=== PATIENT | male | born 1955 | race Caucasian/White ===

== ENCOUNTER 2017-07-21 08:00 | Outpatient (RCR) | payer OTHER ==
[2017-05-19 08:10] VITALS: BP 120/75
[2017-05-19 08:37] LABS: PLATELET COUNT, AUTOMATED 163 K/uL (150-450)
[2017-05-26 08:11] VITALS: BP 116/72
--- NOTE | 2017-05-26 09:05 | ONC Progress Note - NP.Halsey ---
Patient History Date of Service May 26, 2017 Reason For Visit/HPI Patient is seen in the clinic for follow-up of his multiple myeloma. Labs were reviewed with patient today and remain unremarkable. Patient feels relatively well. He continues to have chronic back pain but does not take any medication for this. Patient did have back pain prior to his diagnosis. Patient is able to do most activities and continues to exercise. He reports that he does have increased energy after taken his Decadron on Monday and Monday and then experiences a significant down with even mild depression on Monday and this resolves by Monday. Patient feels that this is his new normal. He denies any new concerns today Problem List (1) Multiple myeloma (2) Back pain (3) Anxiety Oncology History Mr. Calderon is a 61-year-old male who was noted to have increased low back pain for the last three months, which was getting worse, increased with coughing and sneezing. The patient ended up having a lumbar spine MRI done on August 01, 2014, which revealed two bone lesions in lumbar 2 and sacral 1 with otherwise heterogeneous marrow with differential of bone metastasis versus multiple myeloma. He has also superior endplate fracture of lumbar 4, which could be pathologic degenerative disease of lumbar 4-5, annular tear at lumbar 4-5. Serum protein electrophoresis was done, which showed high M-spike of 7.0 gm/dL. His urinalysis and urine protein electrophoresis were positive for monoclonal free [place] light chain. His urine immunoelectrophoresis shows a monoclonal IgG heavy chain with associated [place] light chain and excess monoclonal 3 [place] light chains. The urinary [place] light chain was 8.54 mg/dL. His total protein in urine was 15.92 mg/dL. Skeletal bone survey done on August 05, 2014 did reveal multiple luciences throughout the visualized bone consistent with bony metastases, especially multiple myeloma. Because of his back pain, the patient has started radiation therapy of his back and started on Lortab for pain control. Bone marrow aspiration biopsy done on August 12, 2013 showed abnormal multiple myeloma FISH panel with trisomy of chromosome 9 and 15 and again of CCND1. The patient started treatment with Velcade and Decadron on August 13, 2014. The patient received five cycles of VRD, completed on November. His treatment was switched to Krypolis, Revlimid and dexamethasone on December 15, 2014 to speed the induction of remission of his myeloma prior to autologous bone marrow transplant as per Dr. James Colindres, his bone marrow transplantar. The patient had autologous stem cell transplant on March 12, 2015 after melphalan conditioning. For his residual increasing monoclonal protein of IgG kappa at 1.45 gm/dL after his bone marrow transplant, the patient started maintenance chemotherapy with Revlimid and Decadron started on March 07, 2015. The patient developed neutropenia and thrombocytopenia from Revlimid and the dose of Revlimid decreased from 15 mg per day to 10 mg per day on October 29, 2015. Patient continues on 10 mg per day. Psychosocial History Social History Patient is with 2 adult children Occupational History Patient works and financing Alcohol History He denies abuse Smoking History: No (chew 1 can/week x 10yrs) Smoking Status: Never Smoker Exposure to Second Hand Smoke?: No Medications and Allergies Active Scripts Pantoprazole Sodium (PANTOPRAZOLE SODIUM) 20 Mg Tablet., 20 MG PO QDAY, #90 TAB.SR 3 Refills Prov:DE BECERRA [facility], ONC 04/28/17 Bupropion Hcl (BUPROPION HCL) 75 Mg Tablet, 75 MG PO QDAY, #30 TAB 4 Refills Prov:DE BECERRA [facility], ONC 04/10/17 Phenytoin Sodium Extended (DILANTIN) 100 Mg Capsule, 400 MG PO QHS for seizure, #360 CAPSULE 3 Refills Prov:DE BECERRA [facility], ONC 04/06/17 Sulfamethoxazole/Trimet 800-160 Mg Tab (BACTRIM DS TABLET) 1 Each Tablet, 1 TAB PO BID; TWICE WEEKLY for steroid use- prevention of pne, #48 TAB 3 Refills Prov:DE BECERRA [facility], ONC 10/25/16 Rivaroxaban 20 Mg (XARELTO 20 MG) 20 Mg Tablet, 20 MG PO QDAY, #90 TAB 3 Refills Prov:DE BECERRA [facility], ONC 07/04/16 Valacyclovir Hcl (VALTREX) 500 Mg Tablet, 500 MG PO BID, #180 TAB 3 Refills Prov:DE BECERRA [facility], ONC 07/04/16 Dexamethasone 4 Mg Tab (DEXAMETHASONE 4 MG TAB) 4 Mg Tab, 20 MG PO weekly, #60 TAB 3 Refills Take 20mg orally weekly Prov:DE BECERRA [facility], ONC 10/13/15 Hydrocodone/Acetaminophen (Lortab 5-325 mg Tablet) 1 Each Tablet, 5-325 TAB PO Q4-6H for PAIN, #60 TAB 0 Refills Prov:MARIAMOBDULIA HOSKINSINGA [place] [facility], ONC 11/19/14 Reported Medications Vardenafil Hcl (LEVITRA) 20 Mg Tablet, 20 MG PO QDAY 12/29/16 Aspirin/Calcium Carbonate/Mag (ASPIRIN BUFFERED 325 MG TAB) 325 Mg Tablet, 325 MG PO 12/29/16 Lenalidomide (REVLIMID) 15 Mg Capsule, 10 MG PO DAILY, CAPSULE 05/29/15 Allergies: Coded Allergies: diphenhydramine (Verified Allergy, Unknown, 12/29/16) FROM EHR CONVERSION Uncoded Allergies: IODINE DYE (Adverse Reaction, Mild, NAUSEA AND VOMITING, 03/18/10) Review of System/Physical Exam Review of Systems All Systems Reviewed/Normal: Yes, Except as Noted Gastrointestinal: Diarrhea (occasional episodes) Hematologic: Positive for Fatigue Musculoskeletal: Positive for Bone Pain Physical Exam Vital Signs Temperature: 97.0 Pulse: 74 BP Systolic: 116 BP Diastolic: 72 Respiratory Rate: 16 O2 SAT: 95 O2 Delivery: Room Air Height (inches) 70.00 Weight lb: 176 Weight oz: 1.0 Weight Kg (Ronald): [phone] Pain: 0 ECOG Score: 0 General: Stable, Well Developed, Well Nourished, Not In Acute Distress Psychiatric: Mood appears normal, Affect appears normal Other Exam was deferred today to discuss lab results and continued plan of care Diagnostic Studies Diagnostic Studies Laboratory Laboratory Tests 05/19/17 08:30 Laboratory Tests 12/03/14 00:00: Neutrophils # 0.8, Hematocrit 41.3, Hemoglobin 14.2, Platelet Count 173, White Blood Count 2.7, Albumin 4.3, Alkaline Phosphatase 93, Alanine Aminotransferase (ALT/SGPT) 13, Aspartate Amino Transf (AST/SGOT) 16, Blood Urea Nitrogen 47, Calcium Level 8.9, Chloride Level 108, Carbon Dioxide Level 25, Creatinine 0.88 , Glucose Level 78, Potassium Level 4.1, Sodium Level 138, Total Protein 8.4, Total Bilirubin 0.4 05/19/17 08:30: Hematocrit 45.2, Hemoglobin 16.0, Platelet Count 163, White Blood Count 2.5, Albumin 4.2, Alkaline Phosphatase 106, Alanine Aminotransferase (ALT/SGPT) 35, Aspartate Amino Transf (AST/SGOT) 20, Blood Urea Nitrogen 17, Calcium Level 8.9 , Chloride Level 106, Carbon Dioxide Level 22, Creatinine 0.90, Potassium Level 4.0, Sodium Level 138, Total Protein 7.3, Total Bilirubin 0.5, Red Blood Count 4.35, Mean Corpuscular Volume 103.8, Mean Corpuscular Hemoglobin 36.7, Mean Corpuscular Hemoglobin Concent 35.3, Red Cell Distribution Width 13.9, Mean Platelet Volume 7.5, Neutrophils (%) (Auto) 58.1, Lymphocytes (%) (Auto) 33.5, Monocytes (%) (Auto) 5.5, Eosinophils (%) (Auto) 2.5, Basophils (%) (Auto) 0.4, Nucleated RBC Relative Count (auto) 0.0, Neutrophils # (Auto) 1.4, Lymphocytes # (Auto) 0.8, Monocytes # (Auto) 0.1, Eosinophils # (Auto) 0.1, Basophils # ( Auto) 0.0, Nucleated RBC Absolute Count (auto) 0.00, Glomerular Filtration Rate Calc > 60.0, Random Glucose 90, Uric Acid 4.8, Lactate Dehydrogenase 393, Protein Electrophoresis (T) 7.10, Albumin % (PEP) 4.26, Peufz-0-Lzvseehtu 0.35, Mkuba-1-Rzzluogbc 0.77, Beta Globulins 0.67, Zgau-8-Cgkkixcugisca 2.1, Gamma Globulins (%) 1.06, Immunoglobulin G 1000, Immunoglobulin A 32, Immunoglobulin M 12, KALI & Serum PEP Interpretation See note, Serum Immunofixation Kali done, Free [place]resbach Light Chains, Quant 1.63, Free Lambda Light Chains, Quant 1.17, Free [place]/Lambda Light Chain Ratio 1.39 SPEP interpretation shows slight restriction of protein migration in the gamma region. KALI shows very faint band of IgG kappa suggested the specific immune response or an early monoclonal protein. Close correlation is suggested. Assessment and Plan Assessment & Plan ASSESSMENT 1. Multiple myeloma diagnosed July 2014, status post VRD prior to bone marrow transplant. He received VRD between August 05, 2014 through December 11, 2014. This was followed by two cycles of Kyprolis, Revlimid, dexamethasone between December 15, 2014 through February 03, 2015. He had autologous stem cell transplant March 12, 2015 after melphalan conditioning. After autologous stem cell transplant patient had residual monoclonal protein of IgG kappa of 1.45 g/ dL. He was put on maintenance Revlimid therapy and Decadron started March 07, 2015, and his current serum protein immunoelectrophoresis showed a normal pattern. His kappa free light chain is 1.63, which is in the normal range of 1.94. Patient will continue on Revlimid 10 mg daily, and will follow with Dr. Sewell in one month with CBC, chem panel, LDH, uric acid and myeloma profile. 2. Chemotherapy-induced leukopenia and neutropenia. Current white count 2.5 and ANC 1.4. We will continue to monitor. If his neutropenia deteriorates in the future, Revlimid will be decreased from 10 to 7.5 mg. 3. Thrombocytopenia. Stable. Current platelet count 163,000. No management is required. 4. Anxiety, on Xanax p.r.n. 5. History of seizures, on Dilantin. 6. Deep venous thrombosis of the left lower extremity on Xarelto 20 mg daily. PLAN 1. Continue followup. 2. Continue Revlimid 10 mg daily. 3. Continue Decadron 20 mg weekly. 4. Xarelto 20 mg daily. 5. Patient to return in one month with CBC, chem panel, LDH, uric acid and myeloma profile. 6. Patient is to contact us for any new concerns or complaints. I personally spent a total of 20 minutes. Of that 15 minutes was counseling/ coordination of patient's care. See my note above for details. Copies to: AIDEE ALFARO MD, NANCY J [facility]OLOG[facility]INE[facility], ONC May 26, 2017 09:05
[2017-06-22 08:10] VITALS: BP 116/80
[2017-06-22] MEDS: LIDOCAINE/SOD BICARB 8.4% SYR ID PRN (08:24)
[2017-06-22] MEDS: HEPARIN FLSH (PORT) 500 UN/5ML IVP PRN (08:24)
[2017-06-22 08:36] LABS: PLATELET COUNT, AUTOMATED 146 K/uL (150-450)
[2017-06-30 08:03] VITALS: BP 123/77
--- NOTE | 2017-07-08 15:24 | ONCOLOGY FOLLOW UP NOTE ---
EVENT DATE: June 30, 2017 DIAGNOSES 1. Multiple myeloma with trisomy 9 and 15 and beginning of CCND1. 2. Hypercalcemia due to multiple myeloma. 3. Hyperuricemia due to multiple myeloma. 4. Back pain secondary to multiple myeloma. 5. Anxiety. 6. Seizure. 7. History of deep vein thrombosis in 2011. CHIEF COMPLAINT Patient is here today for followup of his multiple myeloma. ONCOLOGY HISTORY Mr. Calderon is a 61-year-old male who was noted to have increased low back pain for the last three months, which was getting worse, increased with coughing and sneezing. The patient ended up having a lumbar spine MRI done on August 01, 2014, which revealed two bone lesions in lumbar 2 and sacral 1 with otherwise heterogeneous marrow with differential of bone metastasis versus multiple myeloma. He has also superior endplate fracture of lumbar 4, which could be pathologic degenerative disease of lumbar 4-5, annular tear at lumbar 4-5. Serum protein electrophoresis was done, which showed high M-spike of 7.0 gm/dL. His urinalysis and urine protein electrophoresis were positive for monoclonal free [place] light chain. His urine immunoelectrophoresis shows a monoclonal IgG heavy chain with associated [place] light chain and excess monoclonal 3 [place] light chains. The urinary [place] light chain was 8.54 mg/dL. His total protein in urine was 15.92 mg/dL. Skeletal bone survey done on August 05, 2014 did reveal multiple luciences throughout the visualized bone consistent with bony metastases, especially multiple myeloma. Because of his back pain, the patient has started radiation therapy of his back and started on Lortab for pain control. Bone marrow aspiration biopsy done on August 12, 2013 showed abnormal multiple myeloma FISH panel with trisomy of chromosome 9 and 15 and again of CCND1. The patient started treatment with Velcade and Decadron on August 13, 2014. The patient received five cycles of VRD, completed on November. His treatment was switched to Krypolis, Revlimid and dexamethasone on December 15, 2014 to speed the induction of remission of his myeloma prior to autologous bone marrow transplant as per Dr. James Colindres, his bone marrow transplantar. The patient had autologous stem cell transplant on March 12, 2015 after melphalan conditioning. For his residual increasing monoclonal protein of IgG kappa at 1.45 gm/dL after his bone marrow transplant, the patient started maintenance chemotherapy with Revlimid and Decadron started on March 07, 2015. The patient developed neutropenia and thrombocytopenia from Revlimid and the dose of Revlimid decreased from 15 mg per day to 10 mg per day on October 29, 2015. . HISTORY OF PRESENT ILLNESS Patient is here today for followup of his multiple myeloma. He is doing fine currently and he is tolerating treatment with Revlimid without any complications currently. His back pain is under control. PAST MEDICAL HISTORY History of seizure; on medication since 1986 without any recurrence after that. DVT in 2011. PAST SURGICAL HISTORY He had broken left wrist with surgery x2 in 1992. He had knee scope of the right knee in 2009. SOCIAL HISTORY The patient is with two children. 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 He has two drinks per month. He chewed tobacco, but he did not smoke before. He denies any abuse of illicit drugs. FAMILY HISTORY Father had prostate cancer at the age of 72. ALLERGIES No known drug allergies, but he has allergy to IODINE DYE. CURRENT MEDICATIONS 1. Xarelto 20 mg daily. 2. Bupropion XL 150 mg daily. 3. Bactrim DS one tablet twice daily two days per week. 4. Dilantin 400 mg at bedtime. 5. Decadron 20 mg weekly. 6. Valtrex 500 mg twice daily. 7. Protonix 20 mg daily. 8. Revlimid 10 mg daily. 9. Xanax 0.25 mg p.r.n. for anxiety. 10. Lortab 5/325 mg one tablet every four to six hours p.r.n. pain. 11. Compazine 10 mg q.6h. p.r.n. for nausea and vomiting. REVIEW OF SYSTEMS CONSTITUTIONAL: No appetite or weight change. No fever, chills or sweating. No recent infection. HEENT: Ears: No tinnitus or hearing problem. Nose: No nasal discharge or epistaxis. Throat: No sore throat or mouth ulcers. Eyes: No diplopia or visual changes. RESPIRATORY: No shortness of breath. No cough, expectoration or hemoptysis. CARDIOVASCULAR: No chest pain, orthopnea, or paroxysmal nocturnal dyspnea (PND) . No edema. No palpitations. GASTROINTESTINAL: The patient has diarrhea with about three movements per day, watery, nonbloody. GENITOURINARY: No hematuria or dysuria. MUSCULOSKELETAL: He has occasional back pain. NEUROLOGICAL: No tingling or numbness in the hands or feet. No headaches or convulsions. HEMATOLOGIC/LYMPHATIC: He is weak, tired, and fatigued. SKIN: The patient has a skin abscess over the back of his neck, status post drainage and currently on antibiotic with Levaquin, and he is doing fine with that. PSYCHIATRIC: No anxiety or depression. PHYSICAL EXAMINATION GENERAL: Looks stable. Well-developed, well-nourished, and in no acute distress. VITAL SIGNS: Blood pressure 123/77, pulse 86 per minute, respirations 16 per minute, temperature 98, pulse ox 98% on room air. HEENT: Head: Atraumatic. No sinus tenderness to palpation. Eyes: No icterus or conjunctivitis. Mouth and throat: No oral thrush or mucositis. NECK: Supple. No cervical or supraclavicular lymphadenopathy. LUNGS: Clear to auscultation and percussion bilaterally. HEART: Regular rate and rhythm. No gallops, murmurs, clicks or rubs. ABDOMEN: Soft and lax. No tenderness. No hepatosplenomegaly. No masses. EXTREMITIES: No cyanosis, clubbing or edema. LYMPHATICS: No peripheral lymphadenopathy. NEUROLOGICAL: Conscious, alert and oriented times three. No focal motor or sensory deficits. PSYCHIATRIC: Mood and affect appear normal. SKIN: There is an abscess lying over the left zygoma near the left eye. DIAGNOSTIC DATA CBC showed a white count of 2.4, hemoglobin 15.5, hematocrit 44.2, platelets 146 ,000. ANC is 900. Chem panel is totally normal. Beta-2 microglobulin is 2.2. Serum protein electrophoresis showed normal pattern with no monoclonal protein. [place] free light chain is normal at 1.74, and lambda free light chain is normal at 1.14. IgG level is 1050, IgA level is 27, IgM level is 11. ASSESSMENT 1. Multiple myeloma diagnosed in July of 2014, status post VRD prior to bone marrow transplant. He received VRD between August 05, 2014 through November. This was followed by two cycles of Kyprolis, Revlimid and dexamethasone between December 15, 2014 through February 03, 2015. He had autologous stem cell transplant March 12, 2015, after melphalan conditioning. After autologous stem cell transplant the patient had residual monoclonal protein of IgG kappa of 1.45 g/dL. He received after that maintenance Revlimid therapy and Decadron started March 07, 2015, and his current serum protein electrophoresis showed a normal pattern. His kappa free light chain is normal at 1.74. I am planning to continue treatment with Revlimid at 10 mg daily. I will see the patient again in a month with CBC, chemistry panel, LDH, uric acid and myeloma profile. He is doing very well currently. 2. Chemotherapy-induced leukopenia and neutropenia. Current white count is 2.4 and ANC 900, which is stable. We will continue to monitor. I am planning to decrease the dose to 7.5 mg in the future if he develops severe neutropenia. 3. Thrombocytopenia. This is stable. Current platelet count is normal at 146, 000. We will continue to monitor. 4. Anxiety, on Xanax p.r.n. 5. History of seizures, on Dilantin. 6. Deep venous thrombosis, left lower extremity, on Xarelto 20 mg daily. PLAN 1. Continue followup. 2. Continue Revlimid 10 mg daily. 3. Continue Decadron 20 mg weekly. 4. Xarelto 20 mg daily. 5. Patient to return in 1 month with CBC, chem panel, LDH, uric acid and myeloma profile. 6. Patient is to contact us for any new concerns or complaints. MTDD
[~2017-07-21] VITALS: Ht 177.8 cm; Wt 81.5 kg
[~2017-07-21 08:00] MED LIST: ALLO100T70 PO; ALPR-1 PO; ALTEPLASE RECOMB 2 MG VIAL IVP PRN; ASPI-1471 PO; ASPI-879 PO; BUPR-124 PO; BUPR-126 PO; BUPR-147 PO; CEFA1TAB PO; CEP500 PO; CHOL100058 PO; CHOL500050 PO; CLIN300C99 PO; DEX4 PO; DEXTROSE 5%(*) 100 ML BAG 100 ML IVPB PRN; ENOX80DI8 SQ; FENT-17 TD; FENT-19 TD; HYDR-317 PO; INFLUENZA VIRUS VAC 0.5 ML SYR IM ONLY ONE; LENA15CA PO; LENA25CA4 PO; LEVO-85 PO; LOR5/325 PO; LORA-1455 PO; NITR-105 PO; NS(*) 0.9% 100 ML BAG 100 ML IVPB PRN; NS(*) 0.9% 500 ML BAG 500 ML IV PRN; PANT20TA27 PO; PANT40SU3 PO; PHEN100 PO; PHEN100C82 PO; PROC10TA4 PO; RIVA20TA PO; SULF-198 PO; VALA500T66 PO; VARD20TA31 PO; WAR5 PO; WATER STERILE 10 ML VIAL IVP PRN
[2017-07-21 08:38] VITALS: BP 123/80
[2017-07-21 08:40] LABS: PLATELET COUNT, AUTOMATED 140 K/uL (150-450)
[2017-07-21] MEDS: LIDOCAINE/SOD BICARB 8.4% SYR ID PRN (08:40)
[2017-07-21] MEDS: HEPARIN FLSH (PORT) 500 UN/5ML IVP PRN (08:40)
[2017-08-08] MEDS ORDERED: DEX4 PO (09:19)
== END 2017-08-16 ==
LOC: SPU 08:00
PROVIDERS: ATTEND Internal Medicine Hematology
DX: C90.01 Multiple myeloma in remission (principal); D70.2 Other drug-induced agranulocytosis; D69.6 Thrombocytopenia, unspecified; I82.402 Acute embolism and thrombosis of unspecified deep veins of left lower extremity; Z79.899 Other long term (current) drug therapy; Z79.82 Long term (current) use of aspirin; F17.220 Nicotine dependence, chewing tobacco, uncomplicated; R53.83 Other fatigue; M89.8X8 Other specified disorders of bone, other site; Z23 Encounter for immunization
CPT/HCPCS: 36591; 82232; 83615; 83883; 84550; 85025; 86334; 90471; 90674; 99212; J1642; 82040; 82247; 82310; 82374; 82435; 82565; 82947; 84075; 84132; 84155; 84295; 84450; 84460; 84520

== ENCOUNTER 2017-11-16 08:00 | Outpatient (RCR) | payer OTHER ==
[2017-08-22] MEDS: HEPARIN FLSH (PORT) 500 UN/5ML IVP PRN (08:25)
[2017-08-22] MEDS: LIDOCAINE/SOD BICARB 8.4% SYR ID PRN (08:25)
[2017-08-22 08:26] VITALS: BP 118/87
[2017-08-22 08:41] LABS: PLATELET COUNT, AUTOMATED 137 K/uL (150-450)
[2017-08-29 08:07] VITALS: BP 118/80
--- NOTE | 2017-08-29 09:11 | ONC Progress Note - NP.Halsey ---
Patient History Date of Service Aug 29, 2017 Reason For Visit/HPI Patient is seen in the clinic today for follow-up of his multiple myeloma. Overall patient is feeling very well and has no concerns. Patient continues to take dexamethasone on Fridays and has difficulty sleeping on Saturdays by Monday he feels better however he reports that he has a very down day feeling like he is in the black hole. This is not new for him and has remained stable. Patient is currently on bupropion and he feels that he could decrease the dose as he is not sure that he even needs it. He reports having mood changes but no different than any other person. Patient is planning on traveling to [place] in September and would like prescription for Levaquin to take with him in case he has one of his boils that occur. Patient has not had any episodes for the past 6 months. He denies any pain today and is not taking any medication. Problem List (1) Multiple myeloma Oncology History Mr. Calderon is a 61-year-old male who was noted to have increased low back pain for the last three months, which was getting worse, increased with coughing and sneezing. The patient ended up having a lumbar spine MRI done on August 01, 2014, which revealed two bone lesions in lumbar 2 and sacral 1 with otherwise heterogeneous marrow with differential of bone metastasis versus multiple myeloma. He has also superior endplate fracture of lumbar 4, which could be pathologic degenerative disease of lumbar 4-5, annular tear at lumbar 4-5. Serum protein electrophoresis was done, which showed high M-spike of 7.0 gm/dL. His urinalysis and urine protein electrophoresis were positive for monoclonal free [place] light chain. His urine immunoelectrophoresis shows a monoclonal IgG heavy chain with associated [place] light chain and excess monoclonal 3 [place] light chains. The urinary [place] light chain was 8.54 mg/dL. His total protein in urine was 15.92 mg/dL. Skeletal bone survey done on August 05, 2014 did reveal multiple luciences throughout the visualized bone consistent with bony metastases, especially multiple myeloma. Because of his back pain, the patient has started radiation therapy of his back and started on Lortab for pain control. Bone marrow aspiration biopsy done on August 12, 2013 showed abnormal multiple myeloma FISH panel with trisomy of chromosome 9 and 15 and again of CCND1. The patient started treatment with Velcade and Decadron on August 13, 2014. The patient received five cycles of VRD, completed on November. His treatment was switched to Krypolis, Revlimid and dexamethasone on December 15, 2014 to speed the induction of remission of his myeloma prior to autologous bone marrow transplant as per Dr. James Colindres, his bone marrow transplantar. The patient had autologous stem cell transplant on March 12, 2015 after melphalan conditioning. For his residual increasing monoclonal protein of IgG kappa at 1.45 gm/dL after his bone marrow transplant, the patient started maintenance chemotherapy with Revlimid and Decadron started on March 07, 2015. The patient developed neutropenia and thrombocytopenia from Revlimid and the dose of Revlimid decreased from 15 mg per day to 10 mg per day on October 29, 2015. Psychosocial History Social History The patient is with two children. He works as a financial cost analyst. He has two drinks per month. He chewed tobacco, but he did not smoke before. He denies any abuse of illicit drugs. Smoking History: No (chew 1 can/week x 10yrs) Smoking Status: Never Smoker Exposure to Second Hand Smoke?: No Medications and Allergies Active Scripts Levofloxacin 750 Mg Tab (LEVAQUIN 750 MG TAB) 750 Mg Tablet, 750 MG PO DAILY, # 10 TAB Prov:DE BECERRA [facility]-, ONC 08/29/17 Dexamethasone 4 Mg Tab (DEXAMETHASONE 4 MG TAB) 4 Mg Tab, 20 MG PO weekly, #60 TAB 3 Refills Take 20mg orally weekly Prov:DE BECERRA [facility] ONC 08/08/17 Valacyclovir Hcl (VALTREX) 500 Mg Tablet, 500 MG PO BID, #180 TAB 3 Refills Prov:DE BECERRA [facility], ONC 07/13/17 Rivaroxaban 20 Mg (XARELTO 20 MG) 20 Mg Tablet, 20 MG PO QDAY, #90 TAB 3 Refills Prov:DE BECERRA [facility] ONC 06/26/17 Pantoprazole Sodium (PANTOPRAZOLE SODIUM) 20 Mg Tablet.dr, 20 MG PO QDAY, #90 TAB.SR 3 Refills Prov:DE BECERRA [facility] ONC 04/28/17 Phenytoin Sodium Extended (DILANTIN) 100 Mg Capsule, 400 MG PO QHS for seizure, #360 CAPSULE 3 Refills Prov:DE BECERRA [facility], ONC 04/06/17 Sulfamethoxazole/Trimet 800-160 Mg Tab (BACTRIM DS TABLET) 1 Each Tablet, 1 TAB PO BID; TWICE WEEKLY for steroid use- prevention of pne, #48 TAB 3 Refills Prov:MARIAMDE HOSKINS J[facility], ONC 10/25/16 Reported Medications Lenalidomide (REVLIMID) 15 Mg Capsule, 10 MG PO DAILY, CAPSULE 05/29/15 Discontinued Reported Medications Vardenafil Hcl (LEVITRA) 20 Mg Tablet, 20 MG PO QDAY 12/29/16 Aspirin/Calcium Carbonate/Mag (ASPIRIN BUFFERED 325 MG TAB) 325 Mg Tablet, 325 MG PO 12/29/16 Discontinued Scripts Bupropion Hcl (BUPROPION HCL) 75 Mg Tablet, 75 MG PO QDAY, #30 TAB 4 Refills Prov:DE BECERRA [facility], ONC 04/10/17 Hydrocodone/Acetaminophen (Lortab 5-325 mg Tablet) 1 Each Tablet, 5-325 TAB PO Q4-6H for PAIN, #60 TAB 0 Refills Prov:DE BECERRA [facility] ONC 11/19/14 Allergies: Coded Allergies: diphenhydramine (Verified Allergy, Unknown, 12/29/16) FROM EHR CONVERSION Uncoded Allergies: IODINE DYE (Adverse Reaction, Mild, NAUSEA AND VOMITING, 03/18/10) Review of System/Physical Exam Review of Systems All Systems Reviewed/Normal: Yes, Except as Noted Musculoskeletal: Positive for Muscle Pain (occasional back pain but nothing recently) Psychiatric: Anxiety (occasional episodes related to his diagnosis but overall he feels that he is dealing with it very well) Physical Exam Vital Signs Temperature: 97.0 Pulse: 69 BP Systolic: 118 BP Diastolic: 80 Respiratory Rate: 16 O2 SAT: 96 O2 Delivery: Room Air Height (inches) 70.00 Weight lb: 0 Weight oz: 1.0 Weight Kg (Ronald): [id number] Pain: 0 ECOG Score: 0 General: Stable, Well Developed, Well Nourished, Not In Acute Distress HEENT: No Trauma, No Conjunctivitis, No Icterus, No Mucositis Neck: Supple Lungs: Clear to Auscultation Heart: Regular Rate, Regular Rhythm, No Gallops Abdomen: Soft and Nontender, No Hepatosplenomegaly, Other (bowel sounds are active) Extremities: No Cyanosis, No Clubbing, No Edema Lymphadenopathy: No Cervical Psychiatric: Mood appears normal, Affect appears normal Skin: No Skin Rashes, No Bruising, No Purpura Diagnostic Studies Diagnostic Studies Laboratory Laboratory Tests 08/22/17 08:21 Laboratory Tests 12/03/14 00:00: Neutrophils # 0.8, Hematocrit 41.3, Hemoglobin 14.2, Platelet Count 173, White Blood Count 2.7, Albumin 4.3, Alkaline Phosphatase 93, Alanine Aminotransferase (ALT/SGPT) 13, Aspartate Amino Transf (AST/SGOT) 16, Blood Urea Nitrogen 47, Calcium Level 8.9, Chloride Level 108, Carbon Dioxide Level 25, Creatinine 0.88 , Glucose Level 78, Potassium Level 4.1, Sodium Level 138, Total Protein 8.4, Total Bilirubin 0.4 08/22/17 08:21: Hematocrit 46.1, Hemoglobin 16.0, Platelet Count 137, White Blood Count 2.3, Albumin 4.1, Alkaline Phosphatase 106, Alanine Aminotransferase (ALT/SGPT) 38, Aspartate Amino Transf (AST/SGOT) 26, Blood Urea Nitrogen 11, Calcium Level 8.7 , Chloride Level 104, Carbon Dioxide Level 23, Creatinine 1.00, Potassium Level 3.7, Sodium Level 139, Total Protein 7.1, Total Bilirubin 0.6, Red Blood Count 4.42, Mean Corpuscular Volume 104.3, Mean Corpuscular Hemoglobin 36.3, Mean Corpuscular Hemoglobin Concent 34.8, Red Cell Distribution Width 13.6, Mean Platelet Volume 7.9, Neutrophils (%) (Auto) 39.3, Lymphocytes (%) (Auto) 39.3, Monocytes (%) (Auto) 12.7, Eosinophils (%) (Auto) 7.8, Basophils (%) (Auto) 0.9 , Nucleated RBC Relative Count (auto) 0.1, Neutrophils # (Auto) 0.9, Lymphocytes # (Auto) 0.9, Monocytes # (Auto) 0.3, Eosinophils # (Auto) 0.2, Basophils # (Auto) 0.0, Nucleated RBC Absolute Count (auto) 0.00, Glomerular Filtration Rate Calc > 60.0, Random Glucose 83, Uric Acid 4.4, Lactate Dehydrogenase 370, Protein Electrophoresis (T) 7.00, Albumin % (PEP) 4.31, Alpha -1-Globulins 0.32, [id number] 0.72, Beta Globulins 0.66, Beta-2- Microglobulin 2.1, Gamma Globulins (%) 0.99, Immunoglobulin G 1040, Immunoglobulin A 28, Immunoglobulin M 11, KALI & Serum PEP Interpretation See note, Serum Immunofixation Kali done, Free [place] Light Chains, Quant 1.42, Free Lambda Light Chains, Quant 0.98, Free [place]/Lambda Light Chain Ratio 1.45 Assessment and Plan Assessment & Plan ASSESSMENT 1. Multiple myeloma diagnosed in July of 2014, status post VRD prior to bone marrow transplant. He received VRD between August 05, 2014 through November. This was followed by two cycles of Kyprolis, Revlimid and dexamethasone between December 15, 2014 through February 03, 2015. He had autologous stem cell transplant March 12, 2015, after melphalan conditioning. After autologous stem cell transplant the patient had residual monoclonal protein of IgG kappa of 1.45 g/dL. He was started on maintenance Revlimid therapy and Decadron started March 07, 2015. His current serum protein electrophoresis showed a normal pattern. His kappa free light chain is normal at 1.42. He will continue treatment with Revlimid at 10 mg daily and follow with Dr. Sewell in a month with CBC, chemistry panel, LDH, uric acid and myeloma profile. He is doing very well currently. 2. Chemotherapy-induced leukopenia and neutropenia. Current white count is 2.3 and ANC 900, which is stable. We will continue to monitor. Dr. Sewell is planning to decrease the dose to 7.5 mg in the future if he develops severe neutropenia. 3. Thrombocytopenia. This is stable. Current platelet count is normal at 137, 000. We will continue to monitor. 4. Anxiety, on Xanax p.r.n. He is currently on Bupropion and would like to decrease the dose and taper off of it. His current listed dose is 75 mg daily. Patient reports that he is on 50 mg daily. I called the pharmacy and there is no 50 mg tablet. I revisited this with the patient and he will look and see what his current dose is. To decrease this dose he would take one tablet every other day. Patient verbalized understanding. 5. History of seizures, on Dilantin. 6. Deep venous thrombosis, left lower extremity, on Xarelto 20 mg daily. 7. History of wound abscess. Patient occasionally develops a abscess or a boil and is treated with Levaquin. Patient is planning to travel to [place] in September. I will prescribe 10 days of Levaquin for him to take with him. PLAN 1. Continue followup. 2. Continue Revlimid 10 mg daily. 3. Continue Decadron 20 mg weekly. 4. Xarelto 20 mg daily. 5. Patient to return in 1 month with CBC, chem panel, LDH, uric acid and myeloma profile. 6. Patient is to contact us for any new concerns or complaints. 7. Patient will establish care with a new primary care provider is Dr. Sotelo has retired. Several names were given to him. I personally spent a total of 20 minutes. Of that 20 minutes was counseling/ coordination of patient's care. See my note above for details. DE BECERRA [facility], ONC Aug 29, 2017 09:11
[2017-09-15 08:05] VITALS: BP 120/69
[2017-09-15] MEDS: HEPARIN FLSH (PORT) 500 UN/5ML IVP PRN (08:17)
[2017-09-15] MEDS: LIDOCAINE/SOD BICARB 8.4% SYR ID PRN (08:17)
[2017-09-15 08:38] LABS: PLATELET COUNT, AUTOMATED 138 K/uL (150-450)
[2017-09-22 08:12] VITALS: BP 113/78
--- NOTE | 2017-09-22 17:22 | ONCOLOGY FOLLOW UP NOTE ---
EVENT DATE: September 22, 2017 DIAGNOSES 1. Multiple myeloma with trisomy 9 and 15 and beginning of CCND1. 2. Hypercalcemia due to multiple myeloma. 3. Hyperuricemia due to multiple myeloma. 4. Back pain secondary to multiple myeloma. 5. Anxiety. 6. Seizure. 7. History of deep vein thrombosis in 2011. CHIEF COMPLAINT Patient is here today for followup of his multiple myeloma. ONCOLOGY HISTORY Mr. Calderon is a 61-year-old male who was noted to have increased low back pain for the last three months, which was getting worse, increased with coughing and sneezing. The patient ended up having a lumbar spine MRI done on August 01, 2014, which revealed two bone lesions in lumbar 2 and sacral 1 with otherwise heterogeneous marrow with differential of bone metastasis versus multiple myeloma. He has also superior endplate fracture of lumbar 4, which could be pathologic degenerative disease of lumbar 4-5, annular tear at lumbar 4-5. Serum protein electrophoresis was done, which showed high M-spike of 7.0 gm/dL. His urinalysis and urine protein electrophoresis were positive for monoclonal free [place] light chain. His urine immunoelectrophoresis shows a monoclonal IgG heavy chain with associated [place] light chain and excess monoclonal 3 [place] light chains. The urinary [place] light chain was 8.54 mg/dL. His total protein in urine was 15.92 mg/dL. Skeletal bone survey done on August 05, 2014 did reveal multiple luciences throughout the visualized bone consistent with bony metastases, especially multiple myeloma. Because of his back pain, the patient has started radiation therapy of his back and started on Lortab for pain control. Bone marrow aspiration biopsy done on August 12, 2013 showed abnormal multiple myeloma FISH panel with trisomy of chromosome 9 and 15 and again of CCND1. The patient started treatment with Velcade and Decadron on August 13, 2014. The patient received five cycles of VRD, completed on November. His treatment was switched to Krypolis, Revlimid and dexamethasone on December 15, 2014 to speed the induction of remission of his myeloma prior to autologous bone marrow transplant as per Dr. James Colindres, his bone marrow transplantar. The patient had autologous stem cell transplant on March 12, 2015 after melphalan conditioning. For his residual increasing monoclonal protein of IgG kappa at 1.45 gm/dL after his bone marrow transplant, the patient started maintenance chemotherapy with Revlimid and Decadron started on March 07, 2015. The patient developed neutropenia and thrombocytopenia from Revlimid and the dose of Revlimid decreased from 15 mg per day to 10 mg per day on October 29, 2015. . HISTORY OF PRESENT ILLNESS Patient is here today for followup of his multiple myeloma. He is doing very well currently. He is complaining of some fatigue and he has also some chronic diarrhea now for about five to six bowel movements a day which is watery. He denies any bleeding per rectum. PAST MEDICAL HISTORY History of seizure; on medication since 1986 without any recurrence after that. DVT in 2011. PAST SURGICAL HISTORY He had broken left wrist with surgery x2 in 1992. He had knee scope of the right knee in 2009. SOCIAL HISTORY The patient is with two children. He works as a patient financial services specialist. He has two drinks per month. He chewed tobacco, but he did not smoke before. He denies any abuse of illicit drugs. FAMILY HISTORY Father had prostate cancer at the age of 72. ALLERGIES No known drug allergies, but he has allergy to IODINE DYE. CURRENT MEDICATIONS 1. Xarelto 20 mg daily. 2. Bupropion XL 150 mg daily. 3. Bactrim DS one tablet twice daily two days per week. 4. Dilantin 400 mg at bedtime. 5. Decadron 20 mg weekly. 6. Valtrex 500 mg twice daily. 7. Protonix 20 mg daily. 8. Revlimid 10 mg daily. 9. Xanax 0.25 mg p.r.n. for anxiety. 10. Lortab 5/325 mg one tablet every four to six hours p.r.n. pain. 11. Compazine 10 mg q.6h. p.r.n. for nausea and vomiting. REVIEW OF SYSTEMS CONSTITUTIONAL: No appetite or weight change. No fever, chills or sweating. No recent infection. HEENT: Ears: No tinnitus or hearing problem. Nose: No nasal discharge or epistaxis. Throat: No sore throat or mouth ulcers. Eyes: No diplopia or visual changes. RESPIRATORY: No shortness of breath. No cough, expectoration or hemoptysis. CARDIOVASCULAR: No chest pain, orthopnea, or paroxysmal nocturnal dyspnea (PND) . No edema. No palpitations. GASTROINTESTINAL: The patient has diarrhea five to six per day, watery in consistency. GENITOURINARY: No hematuria or dysuria. MUSCULOSKELETAL: He has occasional back pain. NEUROLOGICAL: No tingling or numbness in the hands or feet. No headaches or convulsions. HEMATOLOGIC/LYMPHATIC: He is weak, tired, and fatigued. SKIN: The patient has a skin abscess over the back of his neck, status post drainage and currently on antibiotic with Levaquin, and he is doing fine with that. PSYCHIATRIC: No anxiety or depression. PHYSICAL EXAMINATION GENERAL: Looks stable. Well-developed, well-nourished, and in no acute distress. VITAL SIGNS: Blood pressure 113/78, pulse 71 per minute, respirations 16 per minute, temperature 96.6, pulse ox 96% on room air. HEENT: Head: Atraumatic. No sinus tenderness to palpation. Eyes: No icterus or conjunctivitis. Mouth and throat: No oral thrush or mucositis. NECK: Supple. No cervical or supraclavicular lymphadenopathy. LUNGS: Clear to auscultation and percussion bilaterally. HEART: Regular rate and rhythm. No gallops, murmurs, clicks or rubs. ABDOMEN: Soft and lax. No tenderness. No hepatosplenomegaly. No masses. EXTREMITIES: No cyanosis, clubbing or edema. LYMPHATICS: No peripheral lymphadenopathy. NEUROLOGICAL: Conscious, alert and oriented times three. No focal motor or sensory deficits. PSYCHIATRIC: Mood and affect appear normal. SKIN: There is an abscess lying over the left zygoma near the left eye. DIAGNOSTIC DATA CBC showed a white count of 2000, hemoglobin 15.7, hematocrit 44.3, platelets 138,000. ANC is 1.1. Chem panel is totally normal. [place] free light chain is normal at 1.65, lambda free light chain is normal at 1.12. Immunoelectrophoresis showed normal pattern. ASSESSMENT 1. Multiple myeloma diagnosed in July of 2014, status post VRD prior to bone marrow transplant. He received VRD between August 05, 2014 through November. This was followed by two cycles of Kyprolis, Revlimid and dexamethasone between December 15, 2014 through February 03, 2015. He had autologous stem cell transplant March 12, 2015, after melphalan conditioning. After autologous stem cell transplant the patient had residual monoclonal protein of IgG kappa of 1.45 g/dL. He received after that maintenance Revlimid therapy and Decadron started March 07, 2015, and his current serum protein immunoelectrophoresis showed a normal pattern. His kappa free light chain is 1.65, and the lambda free light chain is 1.12. Both are within the normal range. I am planning to continue Revlimid 10 mg daily. I will see him in a month with CBC, chem panel, LDH, uric acid and myeloma profile. 2. Chronic diarrhea, five to six times per day and watery, getting worse lately. I am planning to check his stools for ova and parasites, culture and sensitivity and C. difficile toxin. Further evaluation and management will depend on the results of those tests. 3. Chemotherapy-induced leukopenia and neutropenia. Current white count is 2000, bun ANC is 1.1. I am planning to monitor. If his neutropenia deteriorates in the future, I am planning to decrease the dose of Revlimid to 7.5 mg daily. 4. Thrombocytopenia. Current platelet count is 138,000. No further workup or treatment is required. 5. Anxiety, on Xanax p.r.n. 6. History of seizures, on Dilantin. 7. Deep venous thrombosis, left lower extremity, on Xarelto 20 mg daily. PLAN 1. Continue followup. 2. Continue Revlimid 20 mg daily. 3. Continue Decadron 20 mg weekly. 4. Xarelto 20 mg daily. 5. Stool for ova and parasites, culture and sensitivity and C. difficile toxin. 6. Patient to return in 1 month with CBC, chem panel, LDH, uric acid and myeloma profile. 7. Patient is to contact us for any new concerns or complaints. [facility] [facility]
[2017-10-13] MEDS: HEPARIN FLSH (PORT) 500 UN/5ML IVP PRN (08:41)
[2017-10-13] MEDS: LIDOCAINE/SOD BICARB 8.4% SYR ID PRN (08:41)
[2017-10-13 08:42] LABS: PLATELET COUNT, AUTOMATED 145 K/uL (150-450)
[2017-10-13 08:43] VITALS: BP 116/92
[2017-10-20 08:33] VITALS: BP 114/74
--- NOTE | 2017-10-20 16:29 | ONCOLOGY FOLLOW UP NOTE ---
EVENT DATE: October 20, 2017 DIAGNOSES 1. Multiple myeloma with trisomy 9 and 15 and beginning of CCND1. 2. Hypercalcemia due to multiple myeloma. 3. Hyperuricemia due to multiple myeloma. 4. Back pain secondary to multiple myeloma. 5. Anxiety. 6. Seizure. 7. History of deep vein thrombosis in 2011. CHIEF COMPLAINT Patient is here today for followup of his multiple myeloma. ONCOLOGY HISTORY Mr. Calderon is a 61-year-old male who was noted to have increased low back pain for the last three months, which was getting worse, increased with coughing and sneezing. The patient ended up having a lumbar spine MRI done on August 01, 2014, which revealed two bone lesions in lumbar 2 and sacral 1 with otherwise heterogeneous marrow with differential of bone metastasis versus multiple myeloma. He has also superior endplate fracture of lumbar 4, which could be pathologic degenerative disease of lumbar 4-5, annular tear at lumbar 4-5. Serum protein electrophoresis was done, which showed high M-spike of 7.0 gm/dL. His urinalysis and urine protein electrophoresis were positive for monoclonal free [place] light chain. His urine immunoelectrophoresis shows a monoclonal IgG heavy chain with associated [place] light chain and excess monoclonal 3 [place] light chains. The urinary [place] light chain was 8.54 mg/dL. His total protein in urine was 15.92 mg/dL. Skeletal bone survey done on August 05, 2014 did reveal multiple luciences throughout the visualized bone consistent with bony metastases, especially multiple myeloma. Because of his back pain, the patient has started radiation therapy of his back and started on Lortab for pain control. Bone marrow aspiration biopsy done on August 12, 2013 showed abnormal multiple myeloma FISH panel with trisomy of chromosome 9 and 15 and again of CCND1. The patient started treatment with Velcade and Decadron on August 13, 2014. The patient received five cycles of VRD, completed on November. His treatment was switched to Krypolis, Revlimid and dexamethasone on December 15, 2014 to speed the induction of remission of his myeloma prior to autologous bone marrow transplant as per Dr. James Colindres, his bone marrow transplantar. The patient had autologous stem cell transplant on March 12, 2015 after melphalan conditioning. For his residual increasing monoclonal protein of IgG kappa at 1.45 gm/dL after his bone marrow transplant, the patient started maintenance chemotherapy with Revlimid and Decadron started on March 07, 2015. The patient developed neutropenia and thrombocytopenia from Revlimid and the dose of Revlimid decreased from 15 mg per day to 10 mg per day on October 29, 2015. . HISTORY OF PRESENT ILLNESS Patient is here today for followup of his multiple myeloma. He is doing fine currently. He is complaining of occasional back pain and he is weak, tired and fatigued, but other than that he really has good general condition. PAST MEDICAL HISTORY History of seizure; on medication since 1986 without any recurrence after that. DVT in 2011. PAST SURGICAL HISTORY He had broken left wrist with surgery x2 in 1992. He had knee scope of the right knee in 2009. SOCIAL HISTORY The patient is with two children. He works as a financial sales associate. He has two drinks per month. He chewed tobacco, but he did not smoke before. He denies any abuse of illicit drugs. FAMILY HISTORY Father had prostate cancer at the age of 72. ALLERGIES No known drug allergies, but he has allergy to IODINE DYE. CURRENT MEDICATIONS 1. Xarelto 20 mg daily. 2. Bupropion XL 150 mg daily. 3. Bactrim DS one tablet twice daily two days per week. 4. Dilantin 400 mg at bedtime. 5. Decadron 20 mg weekly. 6. Valtrex 500 mg twice daily. 7. Protonix 20 mg daily. 8. Revlimid 10 mg daily. 9. Xanax 0.25 mg p.r.n. for anxiety. 10. Lortab 5/325 mg one tablet every four to six hours p.r.n. pain. 11. Compazine 10 mg q.6h. p.r.n. for nausea and vomiting. REVIEW OF SYSTEMS CONSTITUTIONAL: No appetite or weight change. No fever, chills or sweating. No recent infection. HEENT: Ears: No tinnitus or hearing problem. Nose: No nasal discharge or epistaxis. Throat: No sore throat or mouth ulcers. Eyes: No diplopia or visual changes. RESPIRATORY: No shortness of breath. No cough, expectoration or hemoptysis. CARDIOVASCULAR: No chest pain, orthopnea, or paroxysmal nocturnal dyspnea (PND) . No edema. No palpitations. GASTROINTESTINAL: The patient has diarrhea five to six per day, watery in consistency. GENITOURINARY: No hematuria or dysuria. MUSCULOSKELETAL: He has back pain occasionally. NEUROLOGICAL: No tingling or numbness in the hands or feet. No headaches or convulsions. HEMATOLOGIC/LYMPHATIC: He is weak, tired, and fatigued. SKIN: The patient has a skin abscess over the back of his neck, status post drainage and currently on antibiotic with Levaquin, and he is doing fine with that. PSYCHIATRIC: No anxiety or depression. PHYSICAL EXAMINATION GENERAL: Looks stable. Well-developed, well-nourished, and in no acute distress. VITAL SIGNS: Blood pressure 114/74, pulse 72 per minute, respirations 16 per minute, temperature 97.3, pulse ox 94% on room air. HEENT: Head: Atraumatic. No sinus tenderness to palpation. Eyes: No icterus or conjunctivitis. Mouth and throat: No oral thrush or mucositis. NECK: Supple. No cervical or supraclavicular lymphadenopathy. LUNGS: Clear to auscultation and percussion bilaterally. HEART: Regular rate and rhythm. No gallops, murmurs, clicks or rubs. ABDOMEN: Soft and lax. No tenderness. No hepatosplenomegaly. No masses. EXTREMITIES: No cyanosis, clubbing or edema. LYMPHATICS: No peripheral lymphadenopathy. NEUROLOGICAL: Conscious, alert and oriented times three. No focal motor or sensory deficits. PSYCHIATRIC: Mood and affect appear normal. SKIN: There is an abscess lying over the left zygoma near the left eye. DIAGNOSTIC DATA CBC showed a white count of 2000, hemoglobin 16.2, hematocrit 44.9, platelets 145,000. Absolute neutrophilic count is 1000. Chem panel is totally normal. Total protein is 7.3. Beta 2 microglobulin is normal at 2.3. IgG level is 1080 , IgA is low at 22, IgM is low at 10. Immunoelectrophoresis was normal. There was no monoclonal protein. ASSESSMENT 1. Multiple myeloma diagnosed in July of 2014, status post VRD prior to bone marrow transplant. He received VRD between August 05, 2014 through November. This was followed by two cycles of Kyprolis, Revlimid and dexamethasone between December 15, 2014 through February 03, 2015. He had autologous stem cell transplant March 12, 2015, after melphalan conditioning. After autologous stem cell transplant the patient had residual monoclonal protein of IgG kappa of 1.45 g/dL. He received after that maintenance Revlimid therapy and Decadron started March 07, 2015, and his current serum protein immunoelectrophoresis showed normal pattern. His kappa free light chain is 1.58 , and the lambda free light chain is 1.06. Both are within the normal range. I am planning to continue the same treatment with Revlimid 10 mg daily. I am planning to see him again in a month with CBC, chem panel, LDH, uric acid and myeloma profile. Generally speaking patient currently in complete remission. 2. Chemotherapy-induced leukopenia and neutropenia from Revlimid. Current white count is 2000, and ANC is 1000, which is stable. We will continue to monitor. If his ANC deteriorates in the future, I am planning to decrease the dose of Revlimid from 10 to 7.5 mg daily. 3. Thrombocytopenia. Current platelet count is 145,000. No hematologic intervention is required at the moment. I will continue to monitor his count every month. 5. Anxiety on Xanax p.r.n. 6. History of seizures on Dilantin. 7. Deep venous thrombosis, left lower extremity, on Xarelto 20 mg daily. PLAN 1. Continue followup. 2. Continue Revlimid 10 mg daily. 3. Continue Decadron 20 mg weekly. 4. Xarelto 20 mg daily. 5. Patient to return in 1 month with CBC, chem panel, LDH, uric acid and myeloma profile. 6. Patient is to contact us for any new concerns or complaints. MTDD
[~2017-11-16 08:00] MED LIST changes: -INFLUENZA VIRUS VAC 0.5 ML SYR IM ONLY ONE; +LEVO750T44 PO
[2017-11-16] MEDS: LIDOCAINE/SOD BICARB 8.4% SYR ID PRN (08:04)
[2017-11-16 08:05] VITALS: BP 116/82
[2017-11-16] MEDS: HEPARIN FLSH (PORT) 500 UN/5ML IVP PRN (08:05)
[2017-11-16 08:38] LABS: PLATELET COUNT, AUTOMATED 159 K/uL (150-450)
== END 2017-11-19 ==
LOC: SPU 08:00
PROVIDERS: ATTEND Internal Medicine Hematology
DX: C90.00 Multiple myeloma not having achieved remission (principal); D70.2 Other drug-induced agranulocytosis; I82.5Z2 Chronic embolism and thrombosis of unspecified deep veins of left distal lower extremity; Z79.01 Long term (current) use of anticoagulants; Z79.899 Other long term (current) drug therapy; Z87.891 Personal history of nicotine dependence; D69.6 Thrombocytopenia, unspecified; F41.9 Anxiety disorder, unspecified; I82.402 Acute embolism and thrombosis of unspecified deep veins of left lower extremity; E83.52 Hypercalcemia; E79.0 Hyperuricemia without signs of inflammatory arthritis and tophaceous disease; R53.1 Weakness; R53.83 Other fatigue
CPT/HCPCS: 36591; 82232; 83615; 83883; 84550; 85025; 86334; 96523; 99212; J1642; 82040; 82247; 82310; 82374; 82435; 82565; 82947; 84075; 84132; 84155; 84295; 84450; 84460; 84520

== ENCOUNTER 2017-12-13 19:21 | Inpatient (IN) | payer OTHER ==
[~2017-12-13] VITALS: Ht 177.8 cm; Wt 78.6 kg
[~2017-12-13 19:21] MED LIST changes: -ALTEPLASE RECOMB 2 MG VIAL IVP PRN; -DEXTROSE 5%(*) 100 ML BAG 100 ML IVPB PRN; -NS(*) 0.9% 100 ML BAG 100 ML IVPB PRN; -NS(*) 0.9% 500 ML BAG 500 ML IV PRN; -WATER STERILE 10 ML VIAL IVP PRN
--- NOTE | 2017-12-13 19:40 | ER Report ---
History and Physical Time Seen By MD: 19:39 Hx. of Stated Complaint: Patient with fever. Hx of multiple myeloma. Called Dr. Abdul who told him to come up HPI/ROS CHIEF COMPLAINT: fever HISTORY OF PRESENT ILLNESS: This is a 61 year old male. He has not been feeling well for a few days. Had some low grade temperatures the last two days, and today took his temperature on two occasions which showed fever on both. He still feels very tired and has just been lying around for a few days. He has been having sciatic pain in the right leg, a little bit of pain in the left upper arm. He great over the weekend, but had his Monday shot of steroids for his cancer treatment. He has multiple myeloma. He sees Dr. Sewell and called him today, and Dr. Paz had him come in to the ER. The patient tells me that he has low white blood cell counts, normal absolute count running about 800-900. He had seen Dr. Green recently for an incision and drainage of an abscess of his right upper thigh/groin area. This has been healing well. He has a new area forming medial groin, but small area. He usually takes Levaquin when he has these, but they decided to just do the I&D this time without to see how he would do. No abdominal pain or nausea/vomiting. No chest pain, cough or shortness of breath. No sore throat. No headache, vision changes or dizziness. REVIEW OF SYSTEMS: As above. Allergies: Coded Allergies: diphenhydramine (Verified Allergy, Unknown, 12/13/17) FROM EHR CONVERSION Uncoded Allergies: IODINE DYE (Adverse Reaction, Mild, NAUSEA AND VOMITING, 03/18/10) Home Meds Active Scripts Sulfamethoxazole/Trimet 800-160 Mg Tab (BACTRIM DS TABLET) 1 Each Tablet, 1 TAB PO BID; TWICE WEEKLY for steroid use- prevention of pne, #48 TAB 3 Refills Prov:DE BECERR[facility], ONC 09/20/17 Bupropion Hcl (BUPROPION HCL) 75 Mg Tablet, 75 MG PO QDAY for 30 Days, #30 TAB 9 Refills Prov:DE [facility], ONC 09/08/17 Dexamethasone 4 Mg Tab (DEXAMETHASONE 4 MG TAB) 4 Mg Tab, 20 MG PO weekly, #60 TAB 3 Refills Take 20mg orally weekly Prov:DE BECERRA [facility], ONC 08/08/17 Valacyclovir Hcl (VALTREX) 500 Mg Tablet, 500 MG PO BID, #180 TAB 3 Refills Prov:DE BECERRA [facility], ONC 07/13/17 Rivaroxaban 20 Mg (XARELTO 20 MG) 20 Mg Tablet, 20 MG PO QDAY, #90 TAB 3 Refills Prov:DE BECERRA [facility], ONC 06/26/17 Pantoprazole Sodium (PANTOPRAZOLE SODIUM) 20 Mg Tablet.dr, 20 MG PO QDAY, #90 TAB.SR 3 Refills Prov:DE BECERRA [facility], ONC 04/28/17 Phenytoin Sodium Extended (DILANTIN) 100 Mg Capsule, 400 MG PO QHS for seizure, #360 CAPSULE 3 Refills Prov:DE BECERRA [facility]-, ONC 04/06/17 Reported Medications Lenalidomide (REVLIMID) 15 Mg Capsule, 10 MG PO DAILY, CAPSULE 05/29/15 Reviewed Nurses Notes: Yes Hx Smoking: No (chew 1 can/week x 10yrs) Smoking Status: Never Smoker Exposure to Second Hand Smoke?: No Hx Substance Use Disorder: No (occ use in college) Hx Alcohol Use: No Constitutional Vital Sign - Last 24 Hours 12/13/17 12/13/17 12/13/17 12/13/17 19:32 19:33 19:36 19:51 Temp 102.0 Pulse 91 89 83 Resp 16 B/P (MAP) 140/68 (92) 140/68 Pulse Ox 94 96 93 O2 Delivery Room Air 12/13/17 12/13/17 12/13/17 12/13/17 20:30 20:35 20:36 20:51 Temp 101.1 Pulse 93 81 B/P (MAP) 117/82 (94) Pulse Ox 93 95 12/13/17 12/13/17 21:00 21:06 Pulse 82 B/P (MAP) 124/80 (95) Pulse Ox 97 Physical Exam General Appearance: The patient is alert. No acute distress. Non-toxic in appearance. Eyes: Pupils are equal, round. No pallor, injection or icterus. ENT: Mucous membranes are moist. Normal oral mucosa. Posterior oropharynx is normal. Neck: Supple and non tender. Respiratory: Lungs are clear to auscultation. Cardiovascular: Regular rate and rhythm. No murmurs, gallops or rubs. Normal capillary refill. Gastrointestinal: Abdomen is soft and non tender. Nondistended. Normal active bowel sounds. Genitourinary: Small red area in groin just to the left of the genitalia with central scab, no fluctuant pocket was noted. No active drainage. Neurological: Alert and oriented x3. No focal neurologic deficits in the extremities. Skin: Area of I&D on left groin healing well, still with some redness. Musculoskeletal: Extremities are nontender. No tenderness in palpation of the cervical, thoracic and lumbar spine, but he does have significant sciatic pain in the right sciatic notch. No other musculoskeletal pain. DIFFERENTIAL DIAGNOSIS: After history and physical exam, differential diagnosis was considered for fever with neutropenia, on immunosuppression. Medical Decision Making Data Points Result Diagram: 12/13/17200212/13/172002 Laboratory Hematology Test 12/03/14 00:00 12/13/17 20:03 12/13/17 20:05 Neutrophils # 0.8 th/mm3 Hematocrit 41.3 g/dl Hemoglobin 14.2 g/dl Platelet Count 173 th/mm3 White Blood Count 2.7 th/mm3 Albumin 4.3 g/dl 3.6 g/dl (3.5-5.0) Alkaline Phosphatase 93 IU/L 128 U/L (0-126) Alanine Aminotransferase (ALT/SGPT) 13 u/L 55 U/L (0-56) Aspartate Amino Transf (AST/SGOT) 16 prem/L 47 U/L (0-35) Blood Urea Nitrogen 47 mg/dl 13 mg/dl (9-21) Calcium Level 8.9 mg/dl 8.7 mg/dl (8.4-10.2) Chloride Level 108 mmol/L 97 mmol/L (98-107) Carbon Dioxide Level 25 mmol/L 26 mmol/L (22-30) Creatinine 0.88 mg/dl 1.10 mg/dl (0.66-1.25) Glucose Level 78 mg/dl Potassium Level 4.1 mmol/L 3.7 mmol/L (3.5-5.0) Sodium Level 138 mmol/L 135 mmol/L (137-145) Total Protein 8.4 g/dl 6.8 gm/dl (6.3-8.2) Total Bilirubin 0.4 mg/dl 0.4 mg/dl (0.2-1.3) Red Blood Count 3.92 M/uL (4.00-5.60) Mean Corpuscular Volume 103.2 fL (80.0-96.0) Mean Corpuscular Hemoglobin 37.0 pg (26.0-33.0) Mean Corpuscular Hemoglobin Concent 35.9 g/dL (32.0-36.0) Red Cell Distribution Width 12.6 % (11.5-14.5) Mean Platelet Volume 7.2 fL (7.2-11.1) Neutrophils % (Manual) 59 % (39.4-72.5) Lymphocytes % (Manual) 14 % (17.6-49.6) Atypical Lymphocytes % 10 % Monocytes % (Manual) 14 % (4.1-12.4) Eosinophils % (Manual) 3 % (0.4-6.7) Basophils % (Manual) 0 % (0.3-1.4) Macrocytosis 1+ Erythrocyte Sedimentation Rate 23 mm/HOUR (0-20) Prothrombin Time 15.6 seconds (12.0-14.4) Prothromb Time International Ratio 1.23 Activated Partial Thromboplast Time 34 seconds (23-35) Glomerular Filtration Rate Calc > 60.0 Random Glucose 107 mg/dl (75-110) Urine Color Yellow Urine Clarity Clear Urine pH 5.0 pH (4.8-9.5) Urine Specific [place] 1.020 Urine Protein 30 mg/dL (NEGATIVE) Urine Glucose (UA) 50 mg/dL (NEGATIVE) Urine Ketones Negative mg/dL (NEGATIVE) Urine Blood Negative (NEGATIVE) Urine Nitrite Negative (NEGATIVE) Urine Bilirubin Negative (NEGATIVE) Urine Urobilinogen Negative mg/dL (0.2-1.9) Urine Leukocyte Esterase Negative (NEGATIVE) Urine RBC 4 /HPF (0-2/HPF) Urine WBC 1 /HPF (0-5/HPF) Urine Squamous Epithelial Cells None /LPF (</=FEW) Urine Bacteria Negative /HPF (NONE-FEW) Urine Mucus None /HPF (NONE-FEW) Chemistry Test 12/03/14 00:00 12/13/17 20:03 12/13/17 20:05 Neutrophils # 0.8 th/mm3 Hematocrit 41.3 g/dl 40.5 % (42.0-52.0) Hemoglobin 14.2 g/dl 14.5 g/dL (14.0-18.0) Platelet Count 173 th/mm3 158 K/uL (150-450) White Blood Count 2.7 th/mm3 3.4 k/uL (4.5-11.0) Albumin 4.3 g/dl 3.6 g/dl (3.5-5.0) Alkaline Phosphatase 93 IU/L 128 U/L (0-126) Alanine Aminotransferase (ALT/SGPT) 13 u/L 55 U/L (0-56) Aspartate Amino Transf (AST/SGOT) 16 prem/L 47 U/L (0-35) Blood Urea Nitrogen 47 mg/dl Calcium Level 8.9 mg/dl 8.7 mg/dl (8.4-10.2) Chloride Level 108 mmol/L Carbon Dioxide Level 25 mmol/L Creatinine 0.88 mg/dl Glucose Level 78 mg/dl Potassium Level 4.1 mmol/L Sodium Level 138 mmol/L Total Protein 8.4 g/dl 6.8 gm/dl (6.3-8.2) Total Bilirubin 0.4 mg/dl 0.4 mg/dl (0.2-1.3) Red Blood Count 3.92 M/uL (4.00-5.60) Mean Corpuscular Volume 103.2 fL (80.0-96.0) Mean Corpuscular Hemoglobin 37.0 pg (26.0-33.0) Mean Corpuscular Hemoglobin Concent 35.9 g/dL (32.0-36.0) Red Cell Distribution Width 12.6 % (11.5-14.5) Mean Platelet Volume 7.2 fL (7.2-11.1) Neutrophils % (Manual) 59 % (39.4-72.5) Lymphocytes % (Manual) 14 % (17.6-49.6) Atypical Lymphocytes % 10 % Monocytes % (Manual) 14 % (4.1-12.4) Eosinophils % (Manual) 3 % (0.4-6.7) Basophils % (Manual) 0 % (0.3-1.4) Macrocytosis 1+ Erythrocyte Sedimentation Rate 23 mm/HOUR (0-20) Prothrombin Time 15.6 seconds (12.0-14.4) Prothromb Time International Ratio 1.23 Activated Partial Thromboplast Time 34 seconds (23-35) Glomerular Filtration Rate Calc > 60.0 Urine Color Yellow Urine Clarity Clear Urine pH 5.0 pH (4.8-9.5) Urine Specific [place] 1.020 Urine Protein 30 mg/dL (NEGATIVE) Urine Glucose (UA) 50 mg/dL (NEGATIVE) Urine Ketones Negative mg/dL (NEGATIVE) Urine Blood Negative (NEGATIVE) Urine Nitrite Negative (NEGATIVE) Urine Bilirubin Negative (NEGATIVE) Urine Urobilinogen Negative mg/dL (0.2-1.9) Urine Leukocyte Esterase Negative (NEGATIVE) Urine RBC 4 /HPF (0-2/HPF) Urine WBC 1 /HPF (0-5/HPF) Urine Squamous Epithelial Cells None /LPF (</=FEW) Urine Bacteria Negative /HPF (NONE-FEW) Urine Mucus None /HPF (NONE-FEW) Coagulation Test 12/13/17 20:03 Prothrombin Time 15.6 seconds Prothromb Time International Ratio 1.23 Activated Partial Thromboplast Time 34 seconds Urinalysis Test 12/13/17 20:05 Urine Color Yellow Urine Clarity Clear Urine pH 5.0 pH (4.8-9.5) Urine Specific [place] 1.020 Urine Protein 30 mg/dL (NEGATIVE) Urine Glucose (UA) 50 mg/dL (NEGATIVE) Urine Ketones Negative mg/dL (NEGATIVE) Urine Blood Negative (NEGATIVE) Urine Nitrite Negative (NEGATIVE) Urine Bilirubin Negative (NEGATIVE) Urine Urobilinogen Negative mg/dL (0.2-1.9) Urine Leukocyte Esterase Negative (NEGATIVE) Urine RBC 4 /HPF (0-2/HPF) Urine WBC 1 /HPF (0-5/HPF) Urine Squamous Epithelial Cells None /LPF (</=FEW) Urine Bacteria Negative /HPF (NONE-FEW) Urine Mucus None /HPF (NONE-FEW) EKG/Imaging Imaging CHEST SINGLE AP COMPARISONS: None. ADDITIONAL PERTINENT HISTORY: Fever FINDINGS: Life-support: Right internal jugular venous port with its tip in the mid SVC. Cardiomediastinal silhouette: Negative. Pulmonary vasculature: Negative. Lung hernandez: Minimal bibasilar regions of scarring. Otherwise negative Pleural spaces: Negative. Osseous structures: Negative. Surrounding soft tissues: Negative. IMPRESSION: No evidence of acute cardiopulmonary disease. Report Dictated By: Murali Cardozo MD at 12/13/2017 8:20 PM ED Course/Re-evaluation Clinical Indication for ER IV: IV Access ED Course After my initial evaluation, discussed with the patient my plans that I would like to get a repeat blood work done as well as urinalysis and a chest x-ray. These were obtained and the patient does have neutropenia with a fever, however his white count is better than it usually is with an absolute neutrophil count of 2000. With him having a fever and his usual low count, this would represent a fever. Urinalysis showed a few cells on her scopic but no bacteria, no squamous epithelial cells, and negative nitrite and leukocyte esterase. I called and discussed the case with Dr. Sewell, and after our conversation, I called and discussed with Dr. Anderson. Patient was admitted to the hospital for fever with neutropenia. He does have a couple of abscesses on the skin which have drained but could be the source of his fever. The pain in his right sciatic area seems to be sciatica but cannot entirely rule out a problem there and the same thing for his left upper arm. Dr. Sewell requested starting cefepime IV and he will see him when he is here at the cancer center tomorrow. Decision to Disposition Date: December 14, 2017 Decision to Disposition Time: 20:30 Depart Departure Latest Vital Signs Vital Signs Date Time Temp Pulse Resp B/P (MAP) Pulse Ox O2 Delivery O2 Flow Rate FiO2 12/13/17 21:06 82 97 12/13/17 21:00 124/80 (95) 12/13/17 20:35 101.1 12/13/17 19:33 16 Room Air Impression: Primary Impression: Fever Additional Impression: Neutropenia Condition: Condition Unchanged Disposition: Admitted from ER Referrals: KARINA ACEVEDO MD (PCP) Problem Qualifiers Primary Impression: Fever Fever type: unspecified Qualified Codes: R50.9 - Fever, unspecified Additional Impression: Neutropenia Neutropenia type: secondary to cancer chemotherapy Qualified Codes: D70.1 - Agranulocytosis secondary to cancer chemotherapy; T45.1X5A - Adverse effect of antineoplastic and immunosuppressive drugs, initial encounter LORRAINE JORGENSEN MD December 13, 2017 19:40
[2017-12-13 20:10] LABS: PLATELET COUNT, AUTOMATED 158 K/uL (150-450)
--- NOTE | 2017-12-13 20:25 | RADIOLOGY IMAGING REPORT ---
FACILITY: [facility] PATIENT NAME: Murali Calderon : 1955 MR: [id number] V: [id number] EXAM DATE: ORDERING PHYSICIAN: LORRAINE JORGENSEN TECHNOLOGIST: Location: [facility] Patient: Murali Calderon : 1955 Visit/Account:[id number] Date of Sevice: 12/13/2017 CHEST SINGLE AP COMPARISONS: None. ADDITIONAL PERTINENT HISTORY: Fever FINDINGS: Life-support: Right internal jugular venous port with its tip in the mid SVC. Cardiomediastinal silhouette: Negative. Pulmonary vasculature: Negative. Lung hernandez: Minimal bibasilar regions of scarring. Otherwise negative Pleural spaces: Negative. Osseous structures: Negative. Surrounding soft tissues: Negative. IMPRESSION: No evidence of acute cardiopulmonary disease. Report Dictated By: Murali Cardozo MD at 12/13/2017 8:20 PM Report E-Signed By: Murali Cardozo MD at 12/13/2017 8:21 PM WSN:[id number]
[2017-12-13] MEDS ORDERED: CEFEPIME HCL 1 GM VIAL IVP ONE (20:45)
[2017-12-13] MEDS ORDERED: NS(*) 0.9% 100 ML BAG 100 ML ONE (21:05)
[2017-12-13 21:52] VITALS: BP 130/98
[2017-12-13] MEDS ORDERED: NS(*) 0.9% 1000 ML BAG 1,000 ML IV PRN (22:22)
[2017-12-13] MEDS ORDERED: ACETAMINOPHEN 500 MG TAB PO PRN (22:25)
[2017-12-13] MEDS ORDERED: INFLUENZA VIRUS VAC 0.5 ML SYR IM ONLY ONE (22:25)
[2017-12-13] MEDS ORDERED: ZOLPIDEM TARTRATE 10 MG TAB PO PRN (22:25)
[2017-12-13] MEDS ORDERED: VANCOMYCIN(*) 1 GM VIAL 2 GM in NS(*) 0.9% 500 ML BAG 500 ML IVPB ONE (22:25)
--- NOTE | 2017-12-13 22:48 | History & Physical ---
History of Present Illness Chief Complaint Fever History of Present Illness This patient presented to the emergency room complaining of fever. He is on chemotherapy for multiple myeloma. He has noted a fever over the past two day. He had a superficial abscess in the left groin 2 weeks ago, but reports that it has been improving since it was drained in the clinic. His only complaints now are of pain and swelling in the right triceps and right buttock. History Problems: (1) Multiple myeloma Status: Chronic (2) DVT (deep venous thrombosis) Status: Chronic (3) Gastro-esophageal reflux Status: Chronic (4) History of seizure disorder Status: Chronic (5) Status post wrist surgery Status: Chronic (6) History of knee surgery Status: Chronic Home Meds Active Scripts Sulfamethoxazole/Trimet 800-160 Mg Tab (BACTRIM DS TABLET) 1 Each Tablet, 1 TAB PO BID; TWICE WEEKLY for steroid use- prevention of pne, #48 TAB 3 Refills Prov:DE BEECRRA [facility], ONC 09/20/17 Bupropion Hcl (BUPROPION HCL) 75 Mg Tablet, 75 MG PO QDAY for 30 Days, #30 TAB 9 Refills Prov:DE BECERRA [facility], ONC 09/08/17 Dexamethasone 4 Mg Tab (DEXAMETHASONE 4 MG TAB) 4 Mg Tab, 20 MG PO weekly, #60 TAB 3 Refills Take 20mg orally weekly Prov:DE BECERRA [facility], ONC 08/08/17 Valacyclovir Hcl (VALTREX) 500 Mg Tablet, 500 MG PO BID, #180 TAB 3 Refills Prov:DE BECERRA [facility], ONC 07/13/17 Rivaroxaban 20 Mg (XARELTO 20 MG) 20 Mg Tablet, 20 MG PO QDAY, #90 TAB 3 Refills Prov:DE BECERRA [facility], ONC 06/26/17 Pantoprazole Sodium (PANTOPRAZOLE SODIUM) 20 Mg Tablet.dr, 20 MG PO QDAY, #90 TAB.SR 3 Refills Prov:DE BECERRA [facility], ONC 04/28/17 Phenytoin Sodium Extended (DILANTIN) 100 Mg Capsule, 400 MG PO QHS for seizure, #360 CAPSULE 3 Refills Prov:DE BECERRA [facility], ONC 04/06/17 Reported Medications Lenalidomide (REVLIMID) 15 Mg Capsule, 10 MG PO DAILY, CAPSULE 05/29/15 Allergies: Coded Allergies: diphenhydramine (Verified Allergy, Unknown, 12/13/17) FROM EHR CONVERSION Uncoded Allergies: IODINE DYE (Adverse Reaction, Mild, NAUSEA AND VOMITING, 03/18/10) Patient History: FH: neuropathy FATHER (Father had prostate cancer at the age of 72), , Age:78 FH: prostate cancer FATHER (Father had prostate cancer at the age of 72), , Age:78 FHx: total knee replacement MOTHER, Hx Smoking: No (chew 1 can/week x 10yrs) Smoking Status: Never Smoker Exposure to Second Hand Smoke?: No Caffeine Intake: Coffee Caffeine/Cups Per Day: 1-2/day Hx Alcohol Use: No Hx Substance Use Disorder: No Social Drug Use: Never Social Drugs: Marijuana Review of Systems All Systems Reviewed/Normal: Yes, Except as Noted Constitutional: Fever Exam Vital Signs Vital Signs Date Time Temp Pulse Resp B/P (MAP) Pulse Ox O2 Delivery O2 Flow Rate FiO2 12/13/17 22:22 95 12/13/17 21:52 101.6 81 18 130/98 (109) Room Air Neuro: No Gross deficits Eyes: PERRLA Cardiovascular: Regular Rate and Rhythm Respiratory: Clear to Auscultation GI: Abd Soft and Non-Tender Extremities: Other (Right triceps with area of pain to palpation and firmness. Right buttock with area of pain to palpation and firmess. ) Medical Decision Making Data Points Result Diagram: 12/13/17200212/13/172002 Assessment and Plan Problems: (1) Fever Assessment & Plan: He did present with fever. His only localized symptoms are of pain and firmness in the right triceps and right buttock. These area are tense and warm to palpation. An ultrasound has been ordered to evaluate for possible abscesses. He has been started on empiric treatment with Zosyn and vancomycin. He did recently have a a superficial abscess drained on the left hip and had positive for cultures for MSSA in the remote past. (2) Multiple myeloma Status: Acute Assessment & Plan: He is on chemotherapy with Revlimid and receives steroid injections weekly. (3) DVT (deep venous thrombosis) Status: Acute Assessment & Plan: He is on chronic treatment with Xarelto, which has been held. (4) History of seizure disorder Status: Chronic Assessment & Plan: He is on chronic treatment with Dilantin. Copies to: KARINA ACEVEDO MD Venous Thromboembolism Antithrombotics Is Pt On Any Antithrombotics?: Yes Exam Sepsis Risk: Possible Sepsis Risk MIRIAM MCCRAY DO December 13, 2017 22:48
[2017-12-13 22:51] LABS: INR 1.23
[2017-12-13] MEDS ORDERED: PHENYTOIN ER 100 MG CAPER PO ONE (23:00)
[2017-12-13] MEDS ORDERED: VANCOMYCIN 1 GM VIAL ONE (23:03)
[2017-12-13] MEDS ORDERED: NS(*) 0.9% 500 ML BAG 500 ML ONE (23:24)
[2017-12-14] MEDS ORDERED: PIPERACILLIN/TAZO* 4.5 GM VIAL 4.5 GM in NS(*) 0.9% 100 ML ADDVANT BAG 100 ML IVPB SCH
--- NOTE | 2017-12-14 00:23 | RADIOLOGY IMAGING REPORT ---
FACILITY: [facility] [place] PATIENT NAME: Murali Calderon : 1955 MR: [id number] V: [id number] EXAM DATE: ORDERING PHYSICIAN: MIRIAM MCCRAY TECHNOLOGIST: Location: [facility] [place] Patient: Murali Calderon : 1955 Visit/Account:[id number] Date of Sevice: 12/13/2017 SOFT TISSUE NON-SPECIFIC HISTORY: Fever. Assess for abscess of right triceps and right buttock. COMPARISON: None. FINDINGS: In the posterior right upper arm is a complex 1.6 x 1.2 x 2.7 cm oval, heterogeneously hypo echoic structure with prominent internal vascularity. There is a tiny hypoechoic irregular area withi n it without internal vascular flow that measures 0.6 x 0.5 x 0.7 cm. There is surrounding edema. In the superolateral right buttock is a 5.0 x 2.9 x 4.3 cm hypoechoic structure containing internal s eptations but no internal vascular flow. IMPRESSION: 1. Septated 5.0 cm structure in the superolateral right buttock without internal vascular flow has an ultrasound appearance compatible with abscess. 2. Structure in the posterior right arm has prominent vascular flow within it. It may be phlegmon/dev eloping abscess. A tiny cavity within it that measures less than 1 cm and does not have internal vasc ular flow may be abscess/pus. Report Dictated By: Bozena Luu at 12/14/2017 12:13 AM Report E-Signed By: Bozena Luu at 12/14/2017 12:19 AM WSN:[id number]
[2017-12-14] MEDS: PIPERACILLIN/TAZO* 4.5 GM VIAL 4.5 GM in NS(*) 0.9% 100 ML ADDVANT BAG 100 ML IVPB SCH ×2 (02:10→08:11)
[2017-12-14 03:52] VITALS: BP 119/66
[2017-12-14 06:12] LABS: PLATELET COUNT, AUTOMATED 142 K/uL (150-450)
--- NOTE | 2017-12-14 07:18 | General Surgery Consultation ---
History of Present Illness Requesting Physician dr cervantes Reason for Consult abscess Chief Complaint pain in right buttock History of Present Illness 61 yo male with a history of dvt on plavix and multiple myeloma who is on chemotherapy and has a history of abscesses presents with right buttock pain. patient has has pain for a few days and fever as well. he also has pain in the right triceps area and left groin. ultrasound reveals abscess in right buttock and probable abscess in right triceps area. History Unable To Obtain Past Medical: wrist and knee operations Problems: Home Meds Active Scripts Sulfamethoxazole/Trimet 800-160 Mg Tab (BACTRIM DS TABLET) 1 Each Tablet, 1 TAB PO BID; TWICE WEEKLY for steroid use- prevention of pne, #48 TAB 3 Refills Prov:DE BECERRA [facility]-, ONC 09/20/17 Bupropion Hcl (BUPROPION HCL) 75 Mg Tablet, 75 MG PO QDAY for 30 Days, #30 TAB 9 Refills Prov:DE BECERRA [facility], ONC 09/08/17 Dexamethasone 4 Mg Tab (DEXAMETHASONE 4 MG TAB) 4 Mg Tab, 20 MG PO weekly, #60 TAB 3 Refills Take 20mg orally weekly Prov:DE BECERRA [facility] ONC 08/08/17 Valacyclovir Hcl (VALTREX) 500 Mg Tablet, 500 MG PO BID, #180 TAB 3 Refills Prov:DE BECERRA [facility], ONC 07/13/17 Rivaroxaban 20 Mg (XARELTO 20 MG) 20 Mg Tablet, 20 MG PO QDAY, #90 TAB 3 Refills Prov:DE BECERRA [facility], ONC 06/26/17 Pantoprazole Sodium (PANTOPRAZOLE SODIUM) 20 Mg Tablet., 20 MG PO QDAY, #90 TAB.SR 3 Refills Prov:DE BECERRA [facility], ONC 04/28/17 Phenytoin Sodium Extended (DILANTIN) 100 Mg Capsule, 400 MG PO QHS for seizure, #360 CAPSULE 3 Refills Prov:DE BECERRA [facility], ONC 04/06/17 Reported Medications Lenalidomide (REVLIMID) 15 Mg Capsule, 10 MG PO DAILY, CAPSULE 05/29/15 Allergies: Coded Allergies: diphenhydramine (Verified Allergy, Unknown, 12/13/17) FROM EHR CONVERSION Uncoded Allergies: IODINE DYE (Adverse Reaction, Mild, NAUSEA AND VOMITING, 03/18/10) Family History: FH: neuropathy FATHER (Father had prostate cancer at the age of 72), , Age:78 FH: prostate cancer FATHER (Father had prostate cancer at the age of 72), , Age:78 FHx: total knee replacement MOTHER, Review of Systems Constitutional: Fever Cardiovascular: No Chest Pain, No Palpitations, No Orthostatic Hypotension, No Other Respiratory: No Shortness of Breath, No Cough, No Wheezing, No Other Gastrointestinal: No Nausea, No Vomiting, No Diarrhea, No Dysphagia, No Constipation, No Early Satiety, No Hematemesis, No Hematochezia, No Melena, No Abdominal Pain, No Other Genitourinary: No Dysuria, No Hematuria, No Urinary Incontinence, No Other Exam Vital Signs Vital Signs Date Time Temp Pulse Resp B/P (MAP) Pulse Ox O2 Delivery O2 Flow Rate FiO2 12/14/17 03:52 100.0 76 20 119/66 (83) 90 Room Air General Appearance: Alert, Awake, No Acute Distress GI: Other (tender in upper right buttock, no erythema noted. he has a small skin abscess in the left groin with a small scab over it.) Extremities: Other (tender indurated area in mid triceps area on the right) Medical Decision Making Data Points Result Diagram: 12/14/1751512/14/17515 Assessment and Plan Problems: (1) Abscess of right buttock Assessment & Plan: will drain abscesses today Copies to: ASYA FLEMING MD Venous Thromboembolism Antithrombotics Is Pt On Any Antithrombotics?: Yes ASYA FLEMING MD December 14, 2017 07:18
--- NOTE | 2017-12-14 07:32 | Post Operative Progress Note ---
Post Operative Progress Note Date: December 14, 2017 Time: 13:19 Surgeon: wicho Anesthesia: dr gaston Pre-Op Diagnosis: abscesses right buttock, right triceps and left groin Post-Op Diagnosis: same Procedure(s): incision and drainage of abscesses right triceps and left groin. percutaneous placement of 10 fr pigtail catheter right buttock Specimen Removed:(May be N/A): cultures obtained ASYA FLEMING MD December 14, 2017 07:32
[2017-12-14 07:37] VITALS: BP 95/74
[2017-12-14] MEDS ORDERED: NS(*) 0.9% 1000 ML BAG 1,000 ML IV PRN (08:52)
[2017-12-14] MEDS: valACYclovir HCL 500 MG TAB PO SCH ×2 (08:59→20:25)
[2017-12-14] MEDS: PANTOPRAZOLE SOD 20 MG TABEC PO SCH (08:59)
[2017-12-14] MEDS: buPROPion IR 75 MG TAB PO SCH (08:59)
[2017-12-14] MEDS ORDERED: NORMOSOL R SOLN(*) 1000 ML BAG 1,000 ML IV ONE (09:05)
--- NOTE | 2017-12-14 09:21 | Antimicrobial Stewardship Note ---
Antimicrobial Stewardship Note Note Antimicrobial Stewardship Note: MP is a 61 yo M with a history of multiple myeloma s/p autologous BMT, currently receiving revlimid and dexamethasone, who presented to the ED with fever and neutropenia. WBC 2.7-3.1 Temp 102 - 100F Lactate 1.4 Urine Cx and Blood Cx pending US of soft tissues- revealed multiple abscesses Hx of S.aureus abscess in 08/2015 - not MRSA Antibiotics: Zosyn 4.5g IV q6h Vancomycin 2g IV x 1, then 1.5g IV q12h -- Vanco trough pending (12/15/17 - 1000) Plan- Continue antibiotics as ordered, watch cultures and de-escalate as appropriate. I and D planned today with Dr. Castle. Continue treatment and monitor closely. Liliana Banks, PharmD, OP LILIANA BANKS December 14, 2017 09:21
--- NOTE | 2017-12-14 09:57 | Hospitalist Progress Note ---
Subjective Progress Notes Subjective He denies chills. No concerns from staff. Physical Exam Vital Signs Date Time Temp Pulse Resp B/P (MAP) Pulse Ox O2 Delivery O2 Flow Rate FiO2 12/14/17 07:37 98.9 72 18 95/74 (81) 95 Room Air General Appearance: Alert, Awake, No Acute Distress Musculoskeletal: Other (Pain and swelling on R buttock and R tricep. Some erythema over the tricep) Result Diagram: 12/14/17 0516 12/14/17 0516 Assessment and Plan Problems: (1) Fever Assessment & Plan: He presented with fever for 2 days. He did recently have a a superficial abscess drained on the left hip on 11/28 and had growth of MSSA. 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 He appears to have abscesses subcutaneously over the right triceps and buttock by US. He had been started on empiric treatment with Zosyn and vancomycin. Will stop Zosyn and switch to Primaxin for concern of renal toxicity. Dr. Castle to drain the abscesses today. (2) Multiple myeloma Status: Acute Assessment & Plan: He is on chemotherapy with Revlimid and receives steroid injections weekly. He is on prophylactic Valacyclovir and Bactrim. Bactrim is held. (3) DVT (deep venous thrombosis) Status: Acute Assessment & Plan: He is on chronic treatment with Xarelto, which has been held. (4) History of seizure disorder Status: Chronic Assessment & Plan: He is on chronic treatment with Dilantin. Exam Sepsis Risk: Sepsis Risk Problem Qualifiers (1) Fever: Fever type: unspecified Qualified Codes: R50.9 - Fever, unspecified LEXI MAC MD December 14, 2017 09:57
[2017-12-14 10:33] VITALS: Ht 177.8 cm; Wt 78.6 kg
[2017-12-14] MEDS: VANCOMYCIN(*) 1 GM VIAL 1 GM, VANCOMYCIN (*) 0.5 GM VIAL 0.5 GM in NS(*) 0.9% 250 ML BA... IVPB SCH ×2 (10:54→22:37)
[2017-12-14] MEDS ORDERED: ROPIVACAINE 0.2% 20 ML VIAL ONE (11:28)
[2017-12-14] MEDS ORDERED: GELATIN SPONGE SZ 100 ONE (11:28)
[2017-12-14] MEDS ORDERED: GELATIN SPONGE 12-7MM ONE (11:28)
[2017-12-14] MEDS ORDERED: DEXAMETHASONE SOD PHOS 10MG/ML ONE (12:00)
[2017-12-14] MEDS ORDERED: ONDANSETRON 4 MG/2 ML VIAL ONE (12:00)
[2017-12-14] MEDS ORDERED: LIDOCAINE MPF 1% 5 ML VIAL ONE (12:00)
[2017-12-14] MEDS ORDERED: fentaNYL CITR 100 MCG/2 ML AMP ONE ×2 (12:00→13:35)
[2017-12-14] MEDS ORDERED: MIDAZOLAM 2 MG/2 ML VIAL ONE (12:00)
[2017-12-14] MEDS ORDERED: KETAMINE HCL 200 MG/20 ML MDV ONE (12:09)
[2017-12-14] MEDS ORDERED: APAP/HYDROCODONE 325/5 TAB PO PRN (13:20)
[2017-12-14] MEDS ORDERED: KETOROLAC 30 MG/ML VIAL ONE (13:49)
[2017-12-14] MEDS: IMIPENEM/CILASTA(*) 500MG VIAL 400 MG in NS(*) 0.9% 100 ML BAG 100 ML IVPB SCH ×2 (14:01→19:41)
[2017-12-14 14:34] VITALS: BP 113/68
[2017-12-14 17:05] VITALS: BP 91/62
[2017-12-14 17:22] VITALS: BP 100/68
--- NOTE | 2017-12-14 19:02 | OPERATIVE REPORT 1 ---
EVENT DATE: December 14, 2017 SURGEON: Joshua Castle MD ANESTHESIOLOGIST: Chris Soto MD ANESTHESIA: General. PREOPERATIVE DIAGNOSES 1. Abscess, right buttock. 2. Abscess, right triceps area. 3. Abscess, left groin. POSTOPERATIVE DIAGNOSES 1. Abscess, right buttock. 2. Abscess, right triceps area. 3. Abscess, left groin. PROCEDURES PERFORMED 1. Percutaneous drainage of right buttock abscess with ultrasound guidance. 2. Open incision and drainage of left groin and right triceps area abscesses. DESCRIPTION OF PROCEDURE Patient was placed in supine position and given general anesthetic. He was then rolled in the left lateral decubitus position. The abscess had been marked with ultrasound previously. In this position, the abscess was located more laterally with our ultrasound. There were no skin changes, no erythema, no induration of the skin. We then passed a needle and returned purulent fluid. Aerobic and anaerobic cultures were obtained. At this point, because of the depth of the abscess, the liquid nature of the purulent material, and the patient being on anticoagulation, I felt that percutaneous drainage would be the best, so we made a cher in the skin with a #11 blade, passed the 14- gauge Cathlon into the abscess. Purulent material was returned. Guidewire was passed. We then did dilatation with the dilator and then placed a 10-[place]ai[place]ese pigtail catheter into position. The guidewire and needle were removed. The string was pulled tight on the catheter to secure the pigtail into position. We then aspirated this and got purulent material. We then aspirated and flushed with saline and cleaned out the cavity. We then put the adapter on at the level of the skin to secure the catheter in place. It was then hooked to suction drainage. We then placed the patient in the supine position. The left groin and right triceps area were prepped and draped in the sterile fashion. In the left groin, he had two small openings. These were opened and expressed of some thick material. These areas were curetted. These openings were only a few millimeters in size, and there was no abscess cavity per se. Sterile bandage was then placed. We then went to the right triceps area. This area was aspirated with an 18-gauge needle, and small amount of purulent material was returned. We then made a small incision and used a hemostat to probe through into the abscess cavity and returned thick, purulent material. We stretched this area to get it wide open. We then removed a tiny piece of the skin. We then placed a compression bandage on this. Patient tolerated the procedure well. No apparent complications. RANJAN
[2017-12-14 19:08] VITALS: BP 100/61
[2017-12-14] MEDS ORDERED: PHENYTOIN ER 100 MG CAPER PO SCH (21:00)
[2017-12-15] MEDS: IMIPENEM/CILASTA(*) 500MG VIAL 400 MG in NS(*) 0.9% 100 ML BAG 100 ML IVPB SCH ×2 (01:54→07:44)
[2017-12-15 04:31] VITALS: BP 96/66
[2017-12-15 06:10] LABS: PLATELET COUNT, AUTOMATED 127 K/uL (150-450)
--- NOTE | 2017-12-15 07:12 | General Surgery Progress Note ---
Subjective Progress Notes Subjective no complaints, buttock pain improved Physical Exam Vital Signs Date Time Temp Pulse Resp B/P (MAP) Pulse Ox O2 Delivery O2 Flow Rate FiO2 12/15/17 04:31 98.5 67 16 96/66 (76) 94 Room Air General Appearance: Alert, Awake, No Acute Distress GI: Other (drain with 5 cc out) Result Diagram: 12/15/17 0511 12/15/17 0511 Assessment and Plan Problems: (1) Abscess of right buttock Assessment & Plan: will drain abscesses today 12/15/17 doing well. will see him in office monday. leave drain in place until then Exam Sepsis Risk: No Definite Risk ASYA FLEMING MD Dec 15, 2017 07:12
[2017-12-15 07:42] VITALS: BP 111/65
[2017-12-15] MEDS ORDERED: CLIN300C99 PO (08:15)
--- NOTE | 2017-12-15 08:19 | Hospitalist Depart ---
Discharge Summary Reason for Hosp/Final Diag: (1) Fever Hospital Course & Plan: He presented with fever for 2 days. He did have history of a superficial abscess drained on the left hip as an outpatient on and had growth of MSSA. He, also, has had previous history of abscesses on his neck and face since his bone marrow transplant. On this admission, he appeared to have abscesses subcutaneously over the right triceps and buttock by US. He was started on empiric treatment with Zosyn and vancomycin. Zosyn was switched to Primaxin for concern of renal toxicity. Dr. Castle drained the abscesses. Cultures were performed and were pending at the time of discharge. The patient tolerated this well and was discharged on a course of oral clindamycin (based on his previous cultures). (2) Multiple myeloma Status: Acute Hospital Course & Plan: He has been on chemotherapy with Revlimid and weekly steroid injections. He has been on prophylactic Valacyclovir and Bactrim. (3) DVT (deep venous thrombosis) Status: Acute Hospital Course & Plan: He had been on chronic treatment with Xarelto, which was held for abscess drainage and was restarted at discharge. (4) History of seizure disorder Status: Chronic Hospital Course & Plan: He was continued on chronic treatment with Dilantin. Departure Weight (Pounds): 173 Weight (Ounces): 5.0 Result Diagram: 12/15/1751012/15/17510 Item Value Date Time Erythrocyte Sedimentation Rate 23 mm/HOUR H 12/13/172002 [facility] *LIVE* [address] [place] [address] FRANKLYN MERCADO M.D., DIRECTOR OF LABORATORY SERVICES GENE ANDERSON M.D., PATHOLOGIST RUN DATE: 12/17/17 Specimen Inquiry Report PAGE 1 RUN TIME: 0810 PATIENT: DAWIT KAUFMAN Liam ACCT: [id number] LOC: MED U : [id number] AGE/SX: 61/M ROOM: 2279 REG : 12/13/[address]: MIRIAM MCCRAY DO : 1955 BED: 279 DIS : 12/15/17 STATUS: DIS IN TLOC: SPEC #: [id number] THANH: 12/14/17-1221 STATUS: COMP REQ #: [id number] RECD: 12/14/17-[address]: ASYA CASTLE MD SOURCE: BUTTOCK ENTR: 12/14/17-[address]: MIRIAM MCCRAY DO SPDESC: KARINA TAYLOR MD ORDERED: CULT [facility] AA/GS COMMENTS: Has specimen been collected/obtained? Y Additional Information: RIGHT BUTTOCK ABCESS Procedure Result Verified GRAM STAIN Final 12/14/17-143 FEW WHITE BLOOD CELLS FEW EPITHELIAL CELLS FEW GRAM POSITIVE COCCI MISCELLANEOUS CULTURE Final 12/17/17-08 Organism 1 STAPHYLOCOCCUS AUREUS 1+ STA AUREUS M.I.C. RX --------- --- AMPICILLIN/SULBACTAM S CEFAZOLIN S CIPROFLOXACIN >=8 R CLINDAMYCIN <=0.25 S ERYTHROMYCIN <=0.25 S GENTAMICIN <=0.5 S LEVOFLOXACIN 4 R LINEZOLID 2 S MOXIFLOXACIN 2 R NITROFURANTOIN 32 S OXACILLIN <=0.25 S BENZYLPENICILLIN >=0.5 R QUINUPRISTIN/DALFOPRISTIN <=0.25 S RIFAMPIN <=0.5 S TETRACYCLINE <=1 S TIGECYCLINE <=0.12 S TRIMETHOPRIM/SULFAMETHOXAZOLE >=320 R VANCOMYCIN 1 S ANAEROBE CULTURE Final 12/17/17-0810 NO ANAEROBES ISOLATED END OF REPORT Condition: Improved Discharge: Home, Self Care Time Spent: < 30 min Discharge Instructions Home Meds Active Scripts Clindamycin Hcl (CLINDAMYCIN HCL) 300 Mg Capsule, 300 MG PO Q6H, #28 CAPSULE Prov:KOSTA BERNAL MD 12/15/17 Sulfamethoxazole/Trimet 800-160 Mg Tab (BACTRIM DS TABLET) 1 Each Tablet, 1 TAB PO BID; TWICE WEEKLY for steroid use- prevention of pne, #48 TAB 3 Refills Prov:DE BEC[facility]RA [facility]-, ONC 09/20/17 Bupropion Hcl (BUPROPION HCL) 75 Mg Tablet, 75 MG PO QDAY for 30 Days, #30 TAB 9 Refills Prov:DE [facility]EC[facility]-, ONC 09/08/17 Dexamethasone 4 Mg Tab (DEXAMETHASONE 4 MG TAB) 4 Mg Tab, 20 MG PO weekly, #60 TAB 3 Refills Take 20mg orally weekly Prov:DE [facility]EC[facility]-, ONC 08/08/17 Valacyclovir Hcl (VALTREX) 500 Mg Tablet, 500 MG PO BID, #180 TAB 3 Refills Prov:DE BECERRA [employer], ONC 07/13/17 Rivaroxaban 20 Mg (XARELTO 20 MG) 20 Mg Tablet, 20 MG PO QDAY, #90 TAB 3 Refills Prov:DE BECERRA [employer], ONC 06/26/17 Pantoprazole Sodium (PANTOPRAZOLE SODIUM) 20 Mg Tablet.dr, 20 MG PO QDAY, #90 TAB.SR 3 Refills Prov:DE BECERRA [employer], ONC 04/28/17 Phenytoin Sodium Extended (DILANTIN) 100 Mg Capsule, 400 MG PO QHS for seizure, #360 CAPSULE 3 Refills Prov:DE BECERRA [employer], ONC 04/06/17 Reported Medications Lenalidomide (REVLIMID) 15 Mg Capsule, 10 MG PO DAILY, CAPSULE 05/29/15 Follow up Referrals: General Surgery @ Surgery, General with Asya Castle Md Internal Medicine @ [facility] with Neeraj Padgett Md Oncology @ Cancer Center with Mehran Sewell Diet: Regular Activity: As Tolerated Special Instructions: Keep appointment with Cancer Center as previously scheduled. Follow up with Dr. Castle on Monday. Reschedule appt. to establish care with Dr. Padgett. Copies to: KARINA ACEVEDO MD; NEERAJ PADGETT MD; ASYA CASTLE MD Venous Thromboembolism Antithrombotics Is Pt On Any Antithrombotics?: Yes Problem Qualifiers (1) Fever: Fever type: unspecified Qualified Codes: R50.9 - Fever, unspecified KOSTA BERNAL MD Dec 15, 2017 08:19
[2017-12-15] MEDS: valACYclovir HCL 500 MG TAB PO SCH (08:58)
[2017-12-15] MEDS: PANTOPRAZOLE SOD 20 MG TABEC PO SCH (08:58)
[2017-12-15] MEDS: buPROPion IR 75 MG TAB PO SCH (08:58)
== END 2017-12-15 10:00 | disposition home or self-care (01) | DRG 580 ==
LOC: ER 19:52 → MED 21:07
PROVIDERS: ADMIT Family Medicine; ATTEND Family Medicine
PROC: 0J9930Z Drainage of Buttock Subcutaneous Tissue and Fascia with Drainage Device, Percutaneous Approach (ICD-10-PCS; principal; 2017-12-13)
PROC: 0H9AXZZ Drainage of Inguinal Skin, External Approach (ICD-10-PCS; 2017-12-13)
PROC: 0J9D0ZZ Drainage of Right Upper Arm Subcutaneous Tissue and Fascia, Open Approach (ICD-10-PCS; 2017-12-13)
DX: L02.31 Cutaneous abscess of buttock (principal); L02.214 Cutaneous abscess of groin; L02.413 Cutaneous abscess of right upper limb; C90.00 Multiple myeloma not having achieved remission; K21.9 Gastro-esophageal reflux disease without esophagitis; G40.909 Epilepsy, unspecified, not intractable, without status epilepticus; R50.81 Fever presenting with conditions classified elsewhere; Z92.21 Personal history of antineoplastic chemotherapy; Z79.52 Long term (current) use of systemic steroids; Z86.718 Personal history of other venous thrombosis and embolism; Z79.01 Long term (current) use of anticoagulants; Z88.8 Allergy status to other drugs, medicaments and biological substances; Z87.891 Personal history of nicotine dependence
CPT/HCPCS: 36415; 71045; 76999; 81001; 82040; 82247; 82310; 82374; 82435; 82565; 82947; 83605; 84075; 84132; 84155; 84295; 84450; 84460; 84520; 85007; 85025; 85027; 85610; 85651; 85730; 87040; 87071; 87073; 87077; 87088; 87186; 87205; 99285; J0692; J0743; J1100; J1885; J2001; J2250; J2405; J2543; J2795; J3010; J3370; J3490; J7030; J7040; J7050

== ENCOUNTER 2018-02-16 08:00 | Outpatient (RCR) | payer OTHER ==
[2017-11-20 11:27] LABS: PLATELET COUNT, AUTOMATED 156 K/uL (150-450)
[2017-11-23 08:05] VITALS: BP 115/76
--- NOTE | 2017-11-23 16:01 | ONCOLOGY FOLLOW UP NOTE ---
EVENT DATE: November 23, 2017 DIAGNOSES 1. Multiple myeloma with trisomy 9 and 15 and beginning of CCND1. 2. Hypercalcemia due to multiple myeloma. 3. Hyperuricemia due to multiple myeloma. 4. Back pain secondary to multiple myeloma. 5. Anxiety. 6. Seizure. 7. History of deep vein thrombosis in 2011. CHIEF COMPLAINT Patient is here today for followup of his multiple myeloma. ONCOLOGY HISTORY Mr. Calderon is a 61-year-old male who was noted to have increased low back pain for the last three months, which was getting worse, increased with coughing and sneezing. The patient ended up having a lumbar spine MRI done on August 01, 2014, which revealed two bone lesions in lumbar 2 and sacral 1 with otherwise heterogeneous marrow with differential of bone metastasis versus multiple myeloma. He has also superior endplate fracture of lumbar 4, which could be pathologic degenerative disease of lumbar 4-5, annular tear at lumbar 4-5. Serum protein electrophoresis was done, which showed high M-spike of 7.0 gm/dL. His urinalysis and urine protein electrophoresis were positive for monoclonal free [place] light chain. His urine immunoelectrophoresis shows a monoclonal IgG heavy chain with associated [place] light chain and excess monoclonal 3 [place] light chains. The urinary [place] light chain was 8.54 mg/dL. His total protein in urine was 15.92 mg/dL. Skeletal bone survey done on August 05, 2014 did reveal multiple luciences throughout the visualized bone consistent with bony metastases, especially multiple myeloma. Because of his back pain, the patient has started radiation therapy of his back and started on Lortab for pain control. Bone marrow aspiration biopsy done on August 12, 2013 showed abnormal multiple myeloma FISH panel with trisomy of chromosome 9 and 15 and again of CCND1. The patient started treatment with Velcade and Decadron on August 13, 2014. The patient received five cycles of VRD, completed on November. His treatment was switched to Krypolis, Revlimid and dexamethasone on December 15, 2014 to speed the induction of remission of his myeloma prior to autologous bone marrow transplant as per Dr. James Colindres, his bone marrow transplantar. The patient had autologous stem cell transplant on March 12, 2015 after melphalan conditioning. For his residual increasing monoclonal protein of IgG kappa at 1.45 gm/dL after his bone marrow transplant, the patient started maintenance chemotherapy with Revlimid and Decadron started on March 07, 2015. The patient developed neutropenia and thrombocytopenia from Revlimid and the dose of Revlimid decreased from 15 mg per day to 10 mg per day on October 29, 2015. HISTORY OF PRESENT ILLNESS Patient is here today for followup of his multiple myeloma on maintenance therapy with Revlimid 10 mg daily. Patient is doing fine currently. Apart from having some skin boils sometimes, which resolved slowly by itself, the patient does not have any other problem currently. PAST MEDICAL HISTORY History of seizure; on medication since 1986 without any recurrence after that. DVT in 2011. PAST SURGICAL HISTORY He had broken left wrist with surgery x2 in 1992. He had knee scope of the right knee in 2009. SOCIAL HISTORY The patient is with two children. He works as a entry level financial analyst. He has two drinks per month. He chewed tobacco, but he did not smoke before. He denies any abuse of illicit drugs. FAMILY HISTORY Father had prostate cancer at the age of 72. ALLERGIES No known drug allergies, but he has allergy to IODINE DYE. CURRENT MEDICATIONS 1. Xarelto 20 mg daily. 2. Bupropion XL 150 mg daily. 3. Bactrim DS one tablet twice daily two days per week. 4. Dilantin 400 mg at bedtime. 5. Decadron 20 mg weekly. 6. Valtrex 500 mg twice daily. 7. Protonix 20 mg daily. 8. Revlimid 10 mg daily. 9. Xanax 0.25 mg p.r.n. for anxiety. 10. Lortab 5/325 mg one tablet every four to six hours p.r.n. pain. 11. Compazine 10 mg q.6h. p.r.n. for nausea and vomiting. REVIEW OF SYSTEMS CONSTITUTIONAL: No appetite or weight change. No fever, chills or sweating. No recent infection. HEENT: Ears: No tinnitus or hearing problem. Nose: No nasal discharge or epistaxis. Throat: No sore throat or mouth ulcers. Eyes: No diplopia or visual changes. RESPIRATORY: No shortness of breath. No cough, expectoration or hemoptysis. CARDIOVASCULAR: No chest pain, orthopnea, or paroxysmal nocturnal dyspnea (PND) . No edema. No palpitations. GASTROINTESTINAL: The patient has diarrhea five to six per day, watery in consistency. GENITOURINARY: No hematuria or dysuria. MUSCULOSKELETAL: He has back pain occasionally. NEUROLOGICAL: No tingling or numbness in the hands or feet. No headaches or convulsions. HEMATOLOGIC/LYMPHATIC: He is weak, tired, and fatigued. SKIN: The patient has some skin boils sometimes which resolve slowly. PSYCHIATRIC: No anxiety or depression. PHYSICAL EXAMINATION GENERAL: Looks stable. Well-developed, well-nourished, and in no acute distress. VITAL SIGNS: Blood pressure 115/76, pulse 71 per minute, respirations 16 per minute, temperature 97, pulse ox 95% on room air. HEENT: Head: Atraumatic. No sinus tenderness to palpation. Eyes: No icterus or conjunctivitis. Mouth and throat: No oral thrush or mucositis. NECK: Supple. No cervical or supraclavicular lymphadenopathy. LUNGS: Clear to auscultation and percussion bilaterally. HEART: Regular rate and rhythm. No gallops, murmurs, clicks or rubs. ABDOMEN: Soft and lax. No tenderness. No hepatosplenomegaly. No masses. EXTREMITIES: No cyanosis, clubbing or edema. LYMPHATICS: No peripheral lymphadenopathy. NEUROLOGICAL: Conscious, alert and oriented times three. No focal motor or sensory deficits. PSYCHIATRIC: Mood and affect appear normal. SKIN: There is an abscess lying over the left zygoma near the left eye. DIAGNOSTIC DATA CBC showed a white count of 2.4, hemoglobin 15.6, hematocrit 44.5, platelets 156 ,000. ANC 0.9. Beta 2 microglobulin is mildly elevated at 2.9. Serum protein immunoelectrophoresis showed a faint band in the IgG kappa suggestive of a specific immune response or an early monoclonal protein. [place] free light chain is 2.28 which is mildly elevated, and kappa to lambda free light chain ratio is 2 which is mildly elevated. ASSESSMENT 1. Multiple myeloma diagnosed in July of 2014, status post VRD prior to bone marrow transplant. He received VRD between August 05, 2014 through November. This was followed by two cycles of Kyprolis, Revlimid and dexamethasone between December 15, 2014 through February 03, 2015. He had autologous stem cell transplant March 12, 2015, after melphalan conditioning. After autologous stem cell transplant the patient had residual monoclonal protein of IgG kappa of 1.45 g/dL. He received after that maintenance Revlimid therapy and Decadron started March 07, 2015, and his current serum protein immunoelectrophoresis showed a faint band in the IgG kappa suggestive of a specific immune response or an early monoclonal protein. Patient had recently severe upper respiratory tract infection. I will continue Revlimid 10 mg daily , and I will continue to monitor his serum protein electrophoresis every month. Further evaluation and management will depend on the results of his myeloma profile every month. He is doing fine currently. Apart from having those skin boils every now and then, the patient does not have any other problem. 2. Chemotherapy-induced leukopenia and neutropenia from Revlimid. Current white count is 2.4 and ANC 900. We will continue to monitor. I will continue Revlimid 10 mg daily. 3. Thrombocytopenia. Could be from Revlimid therapy. Current platelet count is 156,000 which is totally normal. We will continue to monitor. 4. Anxiety on Xanax p.r.n. 5. Deep venous thrombosis, left lower extremity, on Xarelto 20 mg daily. 6. History of seizure, on Dilantin. PLAN 1. Continue followup. 2. Continue Revlimid 10 mg daily. 3. Continue Decadron 20 mg weekly. 4. Xarelto 20 mg daily. 5. Patient to return in one month with CBC, chem panel, LDH, uric acid and myeloma profile. 6. Patient to contact us for any new concerns or complaints. MTDD
[2017-12-14 10:33] VITALS: Wt 80.8 kg
[2017-12-14] MEDS: HEPARIN FLSH (PORT) 500 UN/5ML IVP PRN (11:00)
[2017-12-14] MEDS: LIDOCAINE/SOD BICARB 8.4% SYR ID PRN (11:00)
[2017-12-14 11:06] LABS: PLATELET COUNT, AUTOMATED 175 K/uL (150-450)
[2017-12-22 09:02] VITALS: BP 120/69
--- NOTE | 2017-12-22 15:39 | ONCOLOGY FOLLOW UP NOTE ---
EVENT DATE: December 22, 2017 DIAGNOSES 1. Multiple myeloma with trisomy 9 and 15 and beginning of CCND1. 2. Hypercalcemia due to multiple myeloma. 3. Hyperuricemia due to multiple myeloma. 4. Back pain secondary to multiple myeloma. 5. Anxiety. 6. Seizure. 7. History of deep vein thrombosis in 2011. CHIEF COMPLAINT Patient is here today for followup of his multiple myeloma. ONCOLOGY HISTORY Mr. Calderon is a 61-year-old male who was noted to have increased low back pain for the last three months, which was getting worse, increased with coughing and sneezing. The patient ended up having a lumbar spine MRI done on August 01, 2014, which revealed two bone lesions in lumbar 2 and sacral 1 with otherwise heterogeneous marrow with differential of bone metastasis versus multiple myeloma. He has also superior endplate fracture of lumbar 4, which could be pathologic degenerative disease of lumbar 4-5, annular tear at lumbar 4-5. Serum protein electrophoresis was done, which showed high M-spike of 7.0 gm/dL. His urinalysis and urine protein electrophoresis were positive for monoclonal free [place] light chain. His urine immunoelectrophoresis shows a monoclonal IgG heavy chain with associated [place] light chain and excess monoclonal 3 [place] light chains. The urinary [place] light chain was 8.54 mg/dL. His total protein in urine was 15.92 mg/dL. Skeletal bone survey done on August 05, 2014 did reveal multiple luciences throughout the visualized bone consistent with bony metastases, especially multiple myeloma. Because of his back pain, the patient has started radiation therapy of his back and started on Lortab for pain control. Bone marrow aspiration biopsy done on August 12, 2013 showed abnormal multiple myeloma FISH panel with trisomy of chromosome 9 and 15 and again of CCND1. The patient started treatment with Velcade and Decadron on August 13, 2014. The patient received five cycles of VRD, completed on November. His treatment was switched to [place], Revlimid and dexamethasone on December 15, 2014 to speed the induction of remission of his myeloma prior to autologous bone marrow transplant as per Dr. James Colindres, his bone marrow transplantar. The patient had autologous stem cell transplant on March 12, 2015 after melphalan conditioning. For his residual increasing monoclonal protein of IgG kappa at 1.45 gm/dL after his bone marrow transplant, the patient started maintenance chemotherapy with Revlimid and Decadron started on March 07, 2015. The patient developed neutropenia and thrombocytopenia from Revlimid and the dose of Revlimid decreased from 15 mg per day to 10 mg per day on October 29, 2015. HISTORY OF PRESENT ILLNESS Patient is here today for followup of his multiple myeloma on maintenance Revlimid therapy 10 mg daily. He is doing fine currently. He was hospitalized recently with febrile illness due to multiple abscesses of his skin which are drained, and patient is doing much better currently. He has some disturbance in his gastrointestinal symptoms from antibiotics, but he is doing very currently. Denies any fever or chills. PAST MEDICAL HISTORY History of seizure; on medication since 1986 without any recurrence after that. DVT in 2011. PAST SURGICAL HISTORY He had broken left wrist with surgery x2 in 1992. He had knee scope of the right knee in 2009. SOCIAL HISTORY The patient is with two children. He works as a financial institution treasurer. He has two drinks per month. He chewed tobacco, but he did not smoke before. He denies any abuse of illicit drugs. FAMILY HISTORY Father had prostate cancer at the age of 72. ALLERGIES No known drug allergies, but he has allergy to IODINE DYE. CURRENT MEDICATIONS 1. Xarelto 20 mg daily. 2. Bupropion XL 150 mg daily. 3. Bactrim DS one tablet twice daily two days per week. 4. Dilantin 400 mg at bedtime. 5. Decadron 20 mg weekly. 6. Valtrex 500 mg twice daily. 7. Protonix 20 mg daily. 8. Revlimid 10 mg daily. 9. Xanax 0.25 mg p.r.n. for anxiety. 10. Lortab 5/325 mg one tablet every four to six hours p.r.n. pain. 11. Compazine 10 mg q.6h. p.r.n. for nausea and vomiting. REVIEW OF SYSTEMS CONSTITUTIONAL: No appetite or weight change. No fever, chills or sweating. No recent infection. HEENT: Ears: No tinnitus or hearing problem. Nose: No nasal discharge or epistaxis. Throat: No sore throat or mouth ulcers. Eyes: No diplopia or visual changes. RESPIRATORY: No shortness of breath. No cough, expectoration or hemoptysis. CARDIOVASCULAR: No chest pain, orthopnea, or paroxysmal nocturnal dyspnea (PND) . No edema. No palpitations. GASTROINTESTINAL: He has some disturbance in his bowel movements with his antibiotic therapy, from which he is recovering. GENITOURINARY: No hematuria or dysuria. MUSCULOSKELETAL: He has back pain occasionally. NEUROLOGICAL: No tingling or numbness in the hands or feet. No headaches or convulsions. HEMATOLOGIC/LYMPHATIC: He is weak, tired, and fatigued. SKIN: The patient has some skin boils sometimes which resolve slowly. PSYCHIATRIC: No anxiety or depression. PHYSICAL EXAMINATION GENERAL: Looks stable. Well-developed, well-nourished, and in no acute distress. VITAL SIGNS: Blood pressure 120/69 pulse 73 per minute, respirations 16 per minute, temperature 97.1, pulse ox 96% on room air. HEENT: Head: Atraumatic. No sinus tenderness to palpation. Eyes: No icterus or conjunctivitis. Mouth and throat: No oral thrush or mucositis. NECK: Supple. No cervical or supraclavicular lymphadenopathy. LUNGS: Clear to auscultation and percussion bilaterally. HEART: Regular rate and rhythm. No gallops, murmurs, clicks or rubs. ABDOMEN: Soft and lax. No tenderness. No hepatosplenomegaly. No masses. EXTREMITIES: No cyanosis, clubbing or edema. LYMPHATICS: No peripheral lymphadenopathy. NEUROLOGICAL: Conscious, alert and oriented times three. No focal motor or sensory deficits. PSYCHIATRIC: Mood and affect appear normal. SKIN: There is an abscess lying over the left zygoma near the left eye. DIAGNOSTIC DATA CBC showed a white count of 3.1, hemoglobin 13.8, hematocrit 39.4, platelets 175 ,000. ANC is 2000. Chem panel totally normal except AST 40, ALT 61, alkaline phosphatase 132. Beta 2 microglobulin is 2.6, kappa free light chain is 1.86, lambda free light chain is 1.6, kappa to lambda ratio 1.12, all within the normal range. Serum protein immunoelectrophoresis was negative for monoclonal protein. IgG level was 884, IgA was 30, IgM was 19. ASSESSMENT 1. Multiple myeloma diagnosed in July of 2014, status post VRD prior to bone marrow transplant. He received VRD between August 05, 2014 through November. This was followed by two cycles of Kyprolis, Revlimid and dexamethasone between December 15, 2014 through February 03, 2015. He had autologous stem cell transplant March 12, 2015, after melphalan conditioning. After autologous stem cell transplant the patient had residual monoclonal protein of IgG kappa of 1.45 g/dL. He received after that maintenance Revlimid therapy and Decadron started March 07, 2015, and his current serum protein immunoelectrophoresis was negative for monoclonal protein. Patient recently was admitted with multiple skin abscesses which are drained and he had febrile illness with that treated with antibiotics successfully. He is doing fine currently. I am planning to see him again in a month with CBC, chem panel, LDH , uric acid and myeloma profile. I will continue maintenance Revlimid therapy 10 mg daily. 2. Multiple skin abscesses which are recurrent. I am planning to refer the patient to infectious disease doctor at [facility] looking for a focus of infection causing this trouble. 3. Chemotherapy-induced neutropenia. Current white count is 3.1, which could be a little bit higher than usual because of his recent infection. His ANC currently is normal at 2000. 4. Anxiety on Xanax p.r.n. 5. Deep venous thrombosis, left lower extremity, on Xarelto 20 mg daily. 6. History of seizure, on Dilantin. PLAN 1. Continue followup. 2. Continue Revlimid 10 mg daily. 3. Continue Decadron 20 mg weekly. 4. Xarelto 20 mg daily. 5. Patient to return in one month with CBC, chem panel, LDH, uric acid and myeloma profile. 6. Patient to contact us for any new concern or complaints. MTDD
[2018-01-19] MEDS: LIDOCAINE/SOD BICARB 8.4% SYR ID PRN (08:17)
[2018-01-19 08:18] VITALS: BP 123/69
[2018-01-19] MEDS: HEPARIN FLSH (PORT) 500 UN/5ML IVP PRN (08:18)
[2018-01-19 08:22] LABS: PLATELET COUNT, AUTOMATED 133 K/uL (150-450)
[2018-01-26 08:06] VITALS: BP 109/76
--- NOTE | 2018-01-26 16:33 | ONCOLOGY FOLLOW UP NOTE ---
EVENT DATE: January 26, 2018 DIAGNOSES 1. Multiple myeloma with trisomy 9 and 15 and beginning of CCND1. 2. Hypercalcemia due to multiple myeloma. 3. Hyperuricemia due to multiple myeloma. 4. Back pain secondary to multiple myeloma. 5. Anxiety. 6. Seizure. 7. History of deep vein thrombosis in 2011. CHIEF COMPLAINT Patient is here today for followup of his multiple myeloma. ONCOLOGY HISTORY Mr. Calderon is a 62-year-old male who was noted to have increased low back pain for the last three months, which was getting worse, increased with coughing and sneezing. The patient ended up having a lumbar spine MRI done on August 01, 2014, which revealed two bone lesions in lumbar 2 and sacral 1 with otherwise heterogeneous marrow with differential of bone metastasis versus multiple myeloma. He has also superior endplate fracture of lumbar 4, which could be pathologic degenerative disease of lumbar 4-5, annular tear at lumbar 4-5. Serum protein electrophoresis was done, which showed high M-spike of 7.0 gm/dL. His urinalysis and urine protein electrophoresis were positive for monoclonal free [place] light chain. His urine immunoelectrophoresis shows a monoclonal IgG heavy chain with associated [place] light chain and excess monoclonal 3 [place] light chains. The urinary [place] light chain was 8.54 mg/dL. His total protein in urine was 15.92 mg/dL. Skeletal bone survey done on August 05, 2014 did reveal multiple luciences throughout the visualized bone consistent with bony metastases, especially multiple myeloma. Because of his back pain, the patient has started radiation therapy of his back and started on Lortab for pain control. Bone marrow aspiration biopsy done on August 12, 2013 showed abnormal multiple myeloma FISH panel with trisomy of chromosome 9 and 15 and again of CCND1. The patient started treatment with Velcade and Decadron on August 13, 2014. The patient received five cycles of VRD, completed on November. His treatment was switched to Krypolis, Revlimid and dexamethasone on December 15, 2014 to speed the induction of remission of his myeloma prior to autologous bone marrow transplant as per Dr. James Colindres, his bone marrow transplantar. The patient had autologous stem cell transplant on March 12, 2015 after melphalan conditioning. For his residual increasing monoclonal protein of IgG kappa at 1.45 gm/dL after his bone marrow transplant, the patient started maintenance chemotherapy with Revlimid and Decadron started on March 07, 2015. The patient developed neutropenia and thrombocytopenia from Revlimid and the dose of Revlimid decreased from 15 mg per day to 10 mg per day on October 29, 2015. HISTORY OF PRESENT ILLNESS Patient is here today for followup of his multiple myeloma on maintenance Revlimid therapy 10 mg daily. Patient is doing fine currently. He is complaining of some weakness and fatigue, but other than that he is really doing very well. Denies any back pain as before. The patient has been evaluated by Infectious Disease doctor at [facility] with recommendation of starting antibiotic therapy whenever he will have those skin abscesses, at the start of the symptoms and signs of them. PAST MEDICAL HISTORY History of seizure; on medication since 1986 without any recurrence after that. DVT in 2011. PAST SURGICAL HISTORY He had broken left wrist with surgery x2 in 1992. He had knee scope of the right knee in 2009. SOCIAL HISTORY The patient is with two children. He works as a financial reporting accountant. He has two drinks per month. He chewed tobacco, but he did not smoke before. He denies any abuse of illicit drugs. FAMILY HISTORY Father had prostate cancer at the age of 72. ALLERGIES No known drug allergies, but he has allergy to IODINE DYE. CURRENT MEDICATIONS 1. Xarelto 20 mg daily. 2. Bupropion XL 150 mg daily. 3. Bactrim DS one tablet twice daily two days per week. 4. Dilantin 400 mg at bedtime. 5. Decadron 20 mg weekly. 6. Valtrex 500 mg twice daily. 7. Protonix 20 mg daily. 8. Revlimid 10 mg daily. 9. Xanax 0.25 mg p.r.n. for anxiety. 10. Lortab 5/325 mg one tablet every four to six hours p.r.n. pain. 11. Compazine 10 mg q.6h. p.r.n. for nausea and vomiting. REVIEW OF SYSTEMS CONSTITUTIONAL: No appetite or weight change. No fever, chills or sweating. No recent infection. HEENT: Ears: No tinnitus or hearing problem. Nose: No nasal discharge or epistaxis. Throat: No sore throat or mouth ulcers. Eyes: No diplopia or visual changes. RESPIRATORY: No shortness of breath. No cough, expectoration or hemoptysis. CARDIOVASCULAR: No chest pain, orthopnea, or paroxysmal nocturnal dyspnea (PND) . No edema. No palpitations. GASTROINTESTINAL: He has some disturbance in his bowel movements with his antibiotic therapy, from which he is recovering. GENITOURINARY: No hematuria or dysuria. MUSCULOSKELETAL: He has back pain occasionally. NEUROLOGICAL: No tingling or numbness in the hands or feet. No headaches or convulsions. HEMATOLOGIC/LYMPHATIC: The patient is weak, tired, and fatigued. SKIN: The patient has some skin boils sometimes which resolve slowly. PSYCHIATRIC: No anxiety or depression. PHYSICAL EXAMINATION GENERAL: Looks stable. Well-developed, well-nourished, and in no acute distress. VITAL SIGNS: Blood pressure 109/76, pulse 77 per minute, respirations 16 per minute, temperature 98.7, pulse ox 94% on room air. HEENT: Head: Atraumatic. No sinus tenderness to palpation. Eyes: No icterus or conjunctivitis. Mouth and throat: No oral thrush or mucositis. NECK: Supple. No cervical or supraclavicular lymphadenopathy. LUNGS: Clear to auscultation and percussion bilaterally. HEART: Regular rate and rhythm. No gallops, murmurs, clicks or rubs. ABDOMEN: Soft and lax. No tenderness. No hepatosplenomegaly. No masses. EXTREMITIES: No cyanosis, clubbing or edema. LYMPHATICS: No peripheral lymphadenopathy. NEUROLOGICAL: Conscious, alert and oriented times three. No focal motor or sensory deficits. PSYCHIATRIC: Mood and affect appear normal. SKIN: There is an abscess lying over the left zygoma near the left eye. DIAGNOSTIC DATA CBC showed a white count of 2.1, hemoglobin 15.2, hematocrit 43.4, platelets 133 ,000. ANC is 0.9. Chem panel is totally normal. IgG level is 1070, IgM is low at 19, IgA is low at 35. Lambda free light chain is 1.33 which is down from 1.66. Free kappa light chain is 2.04, which is up from 1.86. Immunoelectrophoresis was normal without any M protein. ASSESSMENT 1. Multiple myeloma diagnosed in July of 2014, status post VRD prior to bone marrow transplant. He received VRD between August 05, 2014 through November. This was followed by two cycles of Kyprolis, Revlimid and dexamethasone between December 15, 2014 through February 03, 2015. He had autologous stem cell transplant March 12, 2015, after melphalan conditioning. After autologous stem cell transplant the patient had residual monoclonal protein of IgG kappa of 1.45 g/dL. He received after that maintenance Revlimid therapy and Decadron started March 07, 2015, and his current serum protein immunoelectrophoresis was negative for monoclonal protein. Patient had recurrent skin abscesses which were drained surgically and treated with antibiotic very well, and he has been evaluated by Infectious Disease doctor at [facility] with recommendation of using antibiotic whenever he starts to have the symptoms and signs of those abscesses. I am planning to continue his treatment as planned with Revlimid 10 mg daily. I will see him again in a month with CBC, chem panel, LDH, uric acid and myeloma profile. Generally speaking he is really doing very well for his disease. 2. Multiple skin abscesses which are recurrent. Patient has been evaluated by Infectious Disease doctor at [facility] with recommendation of using antibiotic whenever it is needed at the beginning of the symptoms and signs of infection. . 3. Chemotherapy-induced neutropenia. Current white count is 2.1, but ANC is 0.9, which is stable. We will continue to monitor. 4. Anxiety, on Xanax p.r.n. 5. Deep venous thrombosis, left lower extremity, on Xarelto 20 mg daily. 6. History of seizure, on Dilantin. PLAN 1. Continue followup. 2. Continue Revlimid 10 mg daily. 3. Continue Decadron 20 mg weekly. 4. Xarelto 20 mg daily. 5. Patient to return in one month with CBC, chem panel, LDH, uric acid and myeloma profile. 6. Patient to contact us for any new concerns or complaints. MTDD
[~2018-02-16 08:00] MED LIST changes: +ALTEPLASE RECOMB 2 MG VIAL IVP PRN; +DEXAMETHASONE SOD PHOS 10MG/ML ONE; +DEXTROSE 5%(*) 100 ML BAG 100 ML IVPB PRN; +LIDOCAINE 2% JELLY 5 ML TUBE ONE; +LIDOCAINE MPF 1% 5 ML VIAL ONE; +MIDAZOLAM 2 MG/2 ML VIAL ONE; +NS(*) 0.9% 100 ML BAG 100 ML IVPB PRN; +NS(*) 0.9% 500 ML BAG 500 ML IV PRN; +ONDANSETRON 4 MG/2 ML VIAL ONE; +PROPOFOL EMUL(*) 10MG/ML 20 ML 20 ML ONE; +WATER FOR INJ,STERILE 20 ML IVP PRN; +fentaNYL CITR 100 MCG/2 ML AMP ONE
[2018-02-16 08:15] VITALS: BP 119/84
[2018-02-16] MEDS: HEPARIN FLSH (PORT) 500 UN/5ML IVP PRN (08:30)
[2018-02-16] MEDS: LIDOCAINE/SOD BICARB 8.4% SYR ID PRN (08:30)
[2018-02-16 08:39] LABS: PLATELET COUNT, AUTOMATED 137 K/uL (150-450)
== END 2018-02-18 ==
LOC: SPU 08:00
PROVIDERS: ATTEND Internal Medicine Hematology
DX: C90.00 Multiple myeloma not having achieved remission (principal); D70.1 Agranulocytosis secondary to cancer chemotherapy; D69.6 Thrombocytopenia, unspecified; F41.9 Anxiety disorder, unspecified; I82.402 Acute embolism and thrombosis of unspecified deep veins of left lower extremity; Z79.01 Long term (current) use of anticoagulants; Z87.891 Personal history of nicotine dependence; Z79.899 Other long term (current) drug therapy; R53.1 Weakness; R53.83 Other fatigue
CPT/HCPCS: 36415; 36591; 82232; 83615; 83883; 84550; 85025; 86334; 99212; J1642; 82040; 82247; 82310; 82374; 82435; 82565; 82947; 84075; 84132; 84155; 84295; 84450; 84460; 84520; J1100; J2001; J2250; J2405; J2704; J3010

== ENCOUNTER 2018-05-21 07:58 | Outpatient (RCR) | payer OTHER ==
[2017-12-14 10:33] VITALS: Wt 82.1 kg
[2018-02-23 08:06] VITALS: BP 109/84
--- NOTE | 2018-02-23 17:04 | [facility]-TAR[facility] ONCOLOGY NOTE ---
EVENT DATE: February 23, 2018 DIAGNOSES 1. Multiple myeloma with trisomy 9 and 15 and beginning of CCND1. 2. Hypercalcemia due to multiple myeloma. 3. Hyperuricemia due to multiple myeloma. 4. Back pain secondary to multiple myeloma. 5. Anxiety. 6. Seizure. 7. History of deep vein thrombosis in 2011. CHIEF COMPLAINT Patient is here today for followup of his multiple myeloma. ONCOLOGY HISTORY Mr. Calderon is a 62-year-old male who was noted to have increased low back pain for the last three months which was getting worse, increased with coughing and sneezing. The patient ended up having a lumbar spine MRI done on August 01, 2014, which revealed two bone lesions in L2 and S1 with otherwise heterogeneous marrow with differential of bone metastasis versus multiple myeloma. He has also superior endplate fracture of L4 which could be pathologic degenerative disease of L4-L5 and annular tear at L4-L5. Serum protein electrophoresis was done, which showed high M-spike of 7.0 gm/dL. His urinalysis and urine protein electrophoresis were positive for monoclonal free kappa light chain. His urine immunoelectrophoresis shows a monoclonal IgG heavy chain with associated kappa light chain and excess monoclonal 3 kappa light chains. The urinary kappa light chain was 8.54 mg/dL. His total protein in urine was 15.92 mg/dL. Skeletal bone survey done on August 05, 2014, did reveal multiple lucencies throughout the visualized bone consistent with bony metastases, especially multiple myeloma. Because of his back pain, the patient has started radiation therapy of his back and started on Lortab for pain control. Bone marrow aspiration biopsy done on August 12, 2013, showed abnormal multiple myeloma FISH panel with trisomy of chromosome 9 and 15 and again of CCND1. The patient started treatment with Velcade and Decadron on August 13, 2014. The patient received five cycles of VRd, completed on December 10, 2014. His treatment was switched to Krypolis, Revlimid, and dexamethasone on December 15, 2014, to speed the induction of remission of his myeloma prior to autologous bone marrow transplant as per Dr. James Colindres, his bone marrow superintendent police. The patient had autologous stem cell transplant on March 12, 2015, after melphalan conditioning. For his residual increasing monoclonal protein of IgG kappa at 1.45 gm/dL after his bone marrow transplant, the patient started maintenance chemotherapy with Revlimid and Decadron, started on March 07, 2015. The patient developed neutropenia and thrombocytopenia from Revlimid, and the dose of Revlimid decreased from 15 mg per day to 10 mg per day on October 29, 2015. HISTORY OF PRESENT ILLNESS Patient is here today for followup of his multiple myeloma on maintenance Revlimid therapy. He is doing fine currently. He has occasional back pain and occasional imbalance. He is weak, tired, and fatigued. PAST MEDICAL HISTORY 1. History of seizure, on medication since 1986 without any recurrence after that. 2. DVT in 2011. PAST SURGICAL HISTORY 1. He had broken left wrist with surgery times two in 1992. 2. He had knee scope of the right knee in 2009. SOCIAL HISTORY The patient is with two children. He works as a financial services counselor. He has two drinks per month. He chewed tobacco, but he did not smoke before. He denies any abuse of illicit drugs. FAMILY HISTORY Father had prostate cancer at the age of 72. ALLERGIES No known drug allergies, but he has allergy to IODINE DYE. CURRENT MEDICATIONS 1. Xarelto 20 mg daily. 2. Bupropion XL 150 mg daily. 3. Bactrim DS one tablet twice daily two days per week. 4. Dilantin 400 mg at bedtime. 5. Decadron 20 mg weekly. 6. Valtrex 500 mg twice daily. 7. Protonix 20 mg daily. 8. Revlimid 10 mg daily. 9. Xanax 0.25 mg p.r.n. for anxiety. 10. Lortab 5/325 mg one tablet every four to six hours p.r.n. pain. 11. Compazine 10 mg q.6 hours p.r.n. for nausea and vomiting. REVIEW OF SYSTEMS CONSTITUTIONAL: No appetite or weight change. No fever, chills or sweating. No recent infection. HEENT: Ears: No tinnitus or hearing problem. Nose: No nasal discharge or epistaxis. Throat: No sore throat or mouth ulcers. Eyes: No diplopia or visual changes. RESPIRATORY: No shortness of breath. No cough, expectoration, or hemoptysis. CARDIOVASCULAR: No chest pain, orthopnea, or paroxysmal nocturnal dyspnea (PND) . No edema. No palpitations. GASTROINTESTINAL: He has some disturbance in his bowel movements with his antibiotic therapy, from which he is recovering. GENITOURINARY: No hematuria or dysuria. MUSCULOSKELETAL: Patient has occasional back pain. NEUROLOGICAL: He has imbalance sometimes. No tingling or numbness in the hands or feet. No headaches or convulsions. HEMATOLOGIC/LYMPHATIC: He is weak, tired, and fatigued. SKIN: The patient has some skin boils sometimes, which resolve slowly. PSYCHIATRIC: No anxiety or depression. PHYSICAL EXAMINATION GENERAL: Looks stable. Well developed, well nourished, and in no acute distress. VITAL SIGNS: Blood pressure 109/84, pulse 79 per minute, respirations 16 per minute, temperature 98, pulse ox 92% on room air. HEENT: Head: Atraumatic. No sinus tenderness to palpation. Eyes: No icterus or conjunctivitis. Mouth and throat: No oral thrush or mucositis. NECK: Supple. No cervical or supraclavicular lymphadenopathy. LUNGS: Clear to auscultation and percussion bilaterally. HEART: Regular rate and rhythm. No gallops, murmurs, clicks, or rubs. ABDOMEN: Soft and lax. No tenderness. No hepatosplenomegaly. No masses. EXTREMITIES: No cyanosis, clubbing, or edema. LYMPHATICS: No peripheral lymphadenopathy. NEUROLOGICAL: Conscious, alert, and oriented times three. No focal motor or sensory deficits. PSYCHIATRIC: Mood and affect appear normal. SKIN: There is an abscess lying over the left zygoma near the left eye. DIAGNOSTIC DATA CBC showed a white count 2.1, hemoglobin 15.7, hematocrit 44.3, platelets 137, 000. ANC is 900. Chem panel is totally normal. Beta 2 microglobulin is normal at 1.9. [place] free light chain is normal at 1.76, and lambda free light chain is normal at 1, while kappa to lambda free light chain ratio is 1.76. IgG level is 981 which is normal. IgA is 35 which is low, and IgM is 18 which is also low. Immunoelectrophoresis was normal with no monoclonal protein. ASSESSMENT 1. Multiple myeloma diagnosed in July 2014, status post Velcade, Revlimid, and doxorubicin prior to bone marrow transplant. He received Velcade, Revlimid , and doxorubicin between August 05, 2014, through December 11, 2014. This was followed by two cycles of Kyprolis, Revlimid, and dexamethasone between December 15, 2014, through February 03, 2015. He had autologous stem cell transplant March 12, 2015, after melphalan conditioning. After autologous stem cell transplant, the patient had residual monoclonal protein of IgG kappa of 1.45 g/dL. He received after that maintenance Revlimid therapy, and Decadron started March 07, 2015. His current serum protein immunoelectrophoresis was negative for monoclonal protein. He had recurrent skin abscesses which were drained surgically and received multiple courses of antibiotic therapy for those recurrent abscesses, and he has been evaluated by an infectious disease physician at [facility] with recommendation of using antibiotic whenever he starts to have the symptoms and signs of those abscesses. He is going out of town soon, and I am planning to give him a prescription of Levaquin in case he has any problem. I am planning to continue treatment with Revlimid at 10 mg daily. I am planning to see him this time in two months with CBC, chemistry panel, LDH, uric acid, and myeloma profile. 2. Multiple skin abscesses which are recurrent. Patient has been seen by an infectious disease physician at [facility] with recommendation of antibiotic whenever the symptoms and signs of those abscesses start. I am planning to give him a prescription of Levaquin just in case as the patient is leaving out of town soon. 3. Chemotherapy-induced neutropenia. Current white count is 2.1, and ANC is 0.9, which is stable. We will continue to monitor. 4. Anxiety, on Xanax p.r.n. 5. Deep venous thrombosis, left lower extremity, on Xarelto 20 mg daily. 6. History of seizure, on Dilantin. PLAN 1. Continue followup. 2. Continue Revlimid 10 mg daily. 3. Continue Decadron 20 mg weekly. 4. Xarelto 20 mg daily. 5. Patient to return in one month with CBC, chem panel, LDH, uric acid, and myeloma profile. 6. Patient to contact us for any new concerns or complaints. [facility]
[2018-03-22] MEDS: LIDOCAINE/SOD BICARB 8.4% SYR ID PRN (08:17)
[2018-03-22] MEDS: HEPARIN FLSH (PORT) 500 UN/5ML IVP PRN (08:17)
[2018-03-22 08:18] VITALS: BP 114/92
[2018-04-06 10:30] VITALS: BP 127/87
[2018-04-06 10:48] LABS: PLATELET COUNT, AUTOMATED 150 K/uL (150-450)
[2018-04-13] MEDS: LIDOCAINE/SOD BICARB 8.4% SYR ID PRN (08:51)
[2018-04-13 08:52] LABS: PLATELET COUNT, AUTOMATED 150 K/uL (150-450)
[2018-04-13 15:59] VITALS: BP 137/79
--- NOTE | 2018-04-14 11:21 | [facility] ONCOLOGY NOTE ---
EVENT DATE: April 13, 2018 DIAGNOSES 1. Multiple myeloma with trisomy 9 and 15 and beginning of CCND1. 2. Hypercalcemia due to multiple myeloma. 3. Hyperuricemia due to multiple myeloma. 4. Back pain secondary to multiple myeloma. 5. Anxiety. 6. Seizure. 7. History of deep vein thrombosis in 2011. CHIEF COMPLAINT Patient is here today for followup of his multiple myeloma. ONCOLOGY HISTORY Mr. Calderon is a 62-year-old male who was noted to have increased low back pain for the last three months which was getting worse, increased with coughing and sneezing. The patient ended up having a lumbar spine MRI done on August 01, 2014, which revealed two bone lesions in L2 and S1 with otherwise heterogeneous marrow with differential of bone metastasis versus multiple myeloma. He has also superior endplate fracture of L4 which could be pathologic degenerative disease of L4-L5 and annular tear at L4-L5. Serum protein electrophoresis was done, which showed high M-spike of 7.0 gm/dL. His urinalysis and urine protein electrophoresis were positive for monoclonal free kappa light chain. His urine immunoelectrophoresis shows a monoclonal IgG heavy chain with associated kappa light chain and excess monoclonal 3 kappa light chains. The urinary kappa light chain was 8.54 mg/dL. His total protein in urine was 15.92 mg/dL. Skeletal bone survey done on August 05, 2014, did reveal multiple lucencies throughout the visualized bone consistent with bony metastases, especially multiple myeloma. Because of his back pain, the patient has started radiation therapy of his back and started on Lortab for pain control. Bone marrow aspiration biopsy done on August 12, 2013, showed abnormal multiple myeloma FISH panel with trisomy of chromosome 9 and 15 and again of CCND1. The patient started treatment with Velcade and Decadron on August 13, 2014. The patient received five cycles of VRd, completed on December 10, 2014. His treatment was switched to Krypolis, Revlimid, and dexamethasone on December 15, 2014, to speed the induction of remission of his myeloma prior to autologous bone marrow transplant as per Dr. James Colindres, his bone marrow hatchery manager. The patient had autologous stem cell transplant on March 12, 2015, after melphalan conditioning. For his residual increasing monoclonal protein of IgG kappa at 1.45 gm/dL after his bone marrow transplant, the patient started maintenance chemotherapy with Revlimid and Decadron, started on March 07, 2015. The patient developed neutropenia and thrombocytopenia from Revlimid, and the dose of Revlimid decreased from 15 mg per day to 10 mg per day on October 29, 2015. HISTORY OF PRESENT ILLNESS Patient is here today for followup of his multiple myeloma on maintenance Revlimid therapy. Patient is doing very well currently. Apart from having some numbness in the bottom of his feet sometimes, the patient does not have any other complaints. PAST MEDICAL HISTORY 1. History of seizure, on medication since 1986 without any recurrence after that. 2. DVT in 2011. PAST SURGICAL HISTORY 1. He had broken left wrist with surgery times two in 1992. 2. He had knee scope of the right knee in 2009. SOCIAL HISTORY The patient is with two children. He works as a personal financial planner. He has two drinks per month. He chewed tobacco, but he did not smoke before. He denies any abuse of illicit drugs. FAMILY HISTORY Father had prostate cancer at the age of 72. ALLERGIES No known drug allergies, but he has allergy to IODINE DYE. CURRENT MEDICATIONS 1. Xarelto 20 mg daily. 2. Bupropion XL 150 mg daily. 3. Bactrim DS one tablet twice daily two days per week. 4. Dilantin 400 mg at bedtime. 5. Decadron 20 mg weekly. 6. Valtrex 500 mg twice daily. 7. Protonix 20 mg daily. 8. Revlimid 10 mg daily. 9. Xanax 0.25 mg p.r.n. for anxiety. 10. Lortab 5/325 mg one tablet every four to six hours p.r.n. pain. 11. Compazine 10 mg q.6 hours p.r.n. for nausea and vomiting. REVIEW OF SYSTEMS CONSTITUTIONAL: No appetite or weight change. No fever, chills or sweating. No recent infection. HEENT: Ears: No tinnitus or hearing problem. Nose: No nasal discharge or epistaxis. Throat: No sore throat or mouth ulcers. Eyes: No diplopia or visual changes. RESPIRATORY: No shortness of breath. No cough, expectoration, or hemoptysis. CARDIOVASCULAR: No chest pain, orthopnea, or paroxysmal nocturnal dyspnea (PND). No edema. No palpitations. GASTROINTESTINAL: He has some disturbance in his bowel movements with his antibiotic therapy, from which he is recovering. GENITOURINARY: No hematuria or dysuria. MUSCULOSKELETAL: Patient has occasional back pain. NEUROLOGICAL: Patient has some numbness in the bottom of his feet. HEMATOLOGIC/LYMPHATIC: He is weak, tired, and fatigued. SKIN: The patient has some skin boils sometimes, which resolve slowly. PSYCHIATRIC: No anxiety or depression. PHYSICAL EXAMINATION GENERAL: Looks stable. Well developed, well nourished, and in no acute distress. VITAL SIGNS: Blood pressure 157/79, pulse 79 per minute, respirations 16 per minute, temperature 98.4, pulse ox 96% on room air. HEENT: Head: Atraumatic. No sinus tenderness to palpation. Eyes: No icterus or conjunctivitis. Mouth and throat: No oral thrush or mucositis. NECK: Supple. No cervical or supraclavicular lymphadenopathy. LUNGS: Clear to auscultation and percussion bilaterally. HEART: Regular rate and rhythm. No gallops, murmurs, clicks, or rubs. ABDOMEN: Soft and lax. No tenderness. No hepatosplenomegaly. No masses. EXTREMITIES: No cyanosis, clubbing, or edema. LYMPHATICS: No peripheral lymphadenopathy. NEUROLOGICAL: Conscious, alert, and oriented times three. No focal motor or sensory deficits. PSYCHIATRIC: Mood and affect appear normal. SKIN: There is an abscess lying over the left zygoma near the left eye. DIAGNOSTIC DATA CBC showed white count 2.2, hemoglobin 15.9, hematocrit 46.1, platelets 150,000. ANC is 1.1. Chem panel is totally normal. IgG is 1,280. IgA is low at 40. IgM is low at 22. [place] free light chain is normal at 1.65. Lambda free light chain is normal at 1.13. Free kappa to lambda light chain ratio is normal at 1.46. Beta 2 microglobulin is 2.1 and serum protein immunoelectrophoresis shows a normal pattern without any monoclonal protein. ASSESSMENT 1. Multiple myeloma diagnosed in July 2014, status post Velcade, Revlimid, and doxorubicin prior to bone marrow transplant. He received Velcade, Revlimid, and doxorubicin between August 05, 2014, through December 11, 2014. This was followed by two cycles of Kyprolis, Revlimid, and dexamethasone between December 15, 2014, through February 03, 2015. He had autologous stem cell transplant March 12, 2015, after melphalan conditioning. After autologous stem cell transplant, the patient had residual monoclonal protein of IgG kappa of 1.45 g/dL. He received after that maintenance Revlimid therapy and Decadron started March 07, 2015. His current serum protein immunoelectrophoresis is negative for monoclonal protein. He has been doing very well currently. I am planning to continue the same treatment with Revlimid 10 mg daily and I will see him in two months with CBC, chem panel, LDH, uric acid and myeloma profile. 2. Multiple skin abscesses, which are recurrent. Patient will use antibiotic whenever it is needed with the start of those abscesses as per recommendation of the infectious disease doctor at [facility]. 3. Chemotherapy-induced neutropenia. Current white count is 2.2 and ANC is 1.1, which is actually stable. We will continue to monitor. 4. Anxiety, on Xanax p.r.n. 5. Deep venous thrombosis, left lower extremity, on Xarelto 20 mg daily. 6. History of seizure, on Dilantin. PLAN 1. Continue followup. 2. Continue Revlimid 10 mg daily. 3. Continue Decadron 20 mg weekly. 4. Xarelto 20 mg daily. 5. Patient to return in two months with CBC, chem panel, LDH, uric acid, and myeloma profile. 6. Patient to contact us for any new concerns or complaints. MTDD
[2018-04-20 08:09] VITALS: BP 108/72
[2018-04-20] MEDS: LIDOCAINE/SOD BICARB 8.4% SYR ID PRN (08:11)
[2018-04-20] MEDS: HEPARIN FLSH (PORT) 500 UN/5ML IVP PRN (08:12)
[~2018-05-21 07:58] MED LIST changes: -DEXAMETHASONE SOD PHOS 10MG/ML ONE; +INFLUENZA VIRUS VAC 0.5ML SYR IM ONLY ONE; -LIDOCAINE 2% JELLY 5 ML TUBE ONE; -LIDOCAINE MPF 1% 5 ML VIAL ONE; -MIDAZOLAM 2 MG/2 ML VIAL ONE; -ONDANSETRON 4 MG/2 ML VIAL ONE; -PROPOFOL EMUL(*) 10MG/ML 20 ML 20 ML ONE; -fentaNYL CITR 100 MCG/2 ML AMP ONE
[2018-05-21] MEDS: HEPARIN FLSH (PORT) 500 UN/5ML IVP PRN (08:26)
[2018-05-21] MEDS: LIDOCAINE/SOD BICARB 8.4% SYR ID PRN (08:27)
== END 2018-05-23 ==
LOC: SPU 07:58
PROVIDERS: ATTEND Internal Medicine Hematology
DX: C90.00 Multiple myeloma not having achieved remission (principal); D70.1 Agranulocytosis secondary to cancer chemotherapy; D69.6 Thrombocytopenia, unspecified; F41.9 Anxiety disorder, unspecified; I82.402 Acute embolism and thrombosis of unspecified deep veins of left lower extremity; Z79.01 Long term (current) use of anticoagulants; Z87.891 Personal history of nicotine dependence; Z79.899 Other long term (current) drug therapy; R53.1 Weakness; R53.83 Other fatigue; E83.52 Hypercalcemia; E79.0 Hyperuricemia without signs of inflammatory arthritis and tophaceous disease; M54.9 Dorsalgia, unspecified; Z23 Encounter for immunization
CPT/HCPCS: 36415; 36591; 82232; 83615; 83883; 84550; 85025; 86334; 90471; 90674; 96523; 99212; J1642; 82040; 82247; 82310; 82374; 82435; 82565; 82947; 84075; 84132; 84155; 84295; 84450; 84460; 84520

== ENCOUNTER 2018-08-24 08:00 | Outpatient (RCR) | payer OTHER ==
[2017-12-14 10:33] VITALS: Wt 82.5 kg
[2018-06-15 08:30] VITALS: BP 117/81
[2018-06-15 08:39] LABS: PLATELET COUNT, AUTOMATED 140 K/uL (150-450)
[2018-06-22 08:02] VITALS: BP 120/77
--- NOTE | 2018-06-22 13:03 | EL-[facility] ONCOLOGY NOTE ---
EVENT DATE: June 22, 2018 DIAGNOSES 1. Multiple myeloma with trisomy 9 and 15 and beginning of CCND1. 2. Hypercalcemia due to multiple myeloma. 3. Hyperuricemia due to multiple myeloma. 4. Back pain secondary to multiple myeloma. 5. Anxiety. 6. Seizure. 7. History of deep vein thrombosis in 2011. CHIEF COMPLAINT Patient is here today for followup of his multiple myeloma, on maintenance Revlimid therapy. ONCOLOGY HISTORY Mr. Calderon is a 62-year-old male who was noted to have increased low back pain for the last three months which was getting worse, increased with coughing and sneezing. The patient ended up having a lumbar spine MRI done on August 01, 2014, which revealed two bone lesions in L2 and S1 with otherwise heterogeneous marrow with differential of bone metastasis versus multiple myeloma. He has also superior endplate fracture of L4 which could be pathologic degenerative disease of L4-L5 and annular tear at L4-L5. Serum protein electrophoresis was done, which showed high M-spike of 7.0 gm/dL. His urinalysis and urine protein electrophoresis were positive for monoclonal free kappa light chain. His urine immunoelectrophoresis shows a monoclonal IgG heavy chain with associated kappa light chain and excess monoclonal 3 kappa light chains. The urinary kappa light chain was 8.54 mg/dL. His total protein in urine was 15.92 mg/dL. Skeletal bone survey done on August 05, 2014, did reveal multiple lucencies throughout the visualized bone consistent with bony metastases, especially multiple myeloma. Because of his back pain, the patient has started radiation therapy of his back and started on Lortab for pain control. Bone marrow aspiration biopsy done on August 12, 2013, showed abnormal multiple myeloma FISH panel with trisomy of chromosome 9 and 15 and again of CCND1. The patient started treatment with Velcade and Decadron on August 13, 2014. The patient received five cycles of VRd, completed on December 10, 2014. His treatment was switched to Krypolis, Revlimid, and dexamethasone on December 15, 2014, to speed the induction of remission of his myeloma prior to autologous bone marrow transplant as per Dr. James Colindres, his bone marrow quality project manager. The patient had autologous stem cell transplant on March 12, 2015, after melphalan conditioning. For his residual increasing monoclonal protein of IgG kappa at 1.45 gm/dL after his bone marrow transplant, the patient started maintenance chemotherapy with Revlimid and Decadron, started on March 07, 2015. The patient developed neutropenia and thrombocytopenia from Revlimid, and the dose of Revlimid decreased from 15 mg per day to 10 mg per day on October 29, 2015. HISTORY OF PRESENT ILLNESS Patient is here today for followup of his multiple myeloma on maintenance Revlimid therapy. He is doing fine currently except for recent upper respiratory infection when he traveled to [place]. He has residual cough with expectoration and nasal discharge. He has soft stools all the time, most probably due to his Revlimid. He has also some back pain. He has also some neuropathy in his feet and some imbalance sometimes, especially when he stands up and walks. He is also weak, tired and fatigued. PAST MEDICAL HISTORY 1. History of seizure, on medication since 1986 without any recurrence after that. 2. DVT in 2011. PAST SURGICAL HISTORY 1. He had broken left wrist with surgery times two in 1992. 2. He had knee scope of the right knee in 2009. SOCIAL HISTORY The patient is with two children. He works as a financial business analyst. He has two drinks per month. He chewed tobacco, but he did not smoke before. He denies any abuse of illicit drugs. FAMILY HISTORY Father had prostate cancer at the age of 72. ALLERGIES No known drug allergies, but he has allergy to IODINE DYE. CURRENT MEDICATIONS 1. Xarelto 20 mg daily. 2. Bupropion XL 150 mg daily. 3. Bactrim DS one tablet twice daily two days per week. 4. Dilantin 400 mg at bedtime. 5. Decadron 20 mg weekly. 6. Valtrex 500 mg twice daily. 7. Protonix 20 mg daily. 8. Revlimid 10 mg daily. 9. Xanax 0.25 mg p.r.n. for anxiety. 10. Lortab 5/325 mg one tablet every four to six hours p.r.n. pain. 11. Compazine 10 mg q.6 hours p.r.n. for nausea and vomiting. REVIEW OF SYSTEMS CONSTITUTIONAL: No appetite or weight change. No fever, chills or sweating. No recent infection. HEENT: Ears: No tinnitus or hearing problem. Nose: He has nasal discharge. Throat: No sore throat or mouth ulcers. Eyes: No diplopia or visual changes. RESPIRATORY: He has cough with expectoration. CARDIOVASCULAR: No chest pain, orthopnea, or paroxysmal nocturnal dyspnea (PND). No edema. No palpitations. GASTROINTESTINAL: He has soft stools. GENITOURINARY: No hematuria or dysuria. MUSCULOSKELETAL: He has back pain. NEUROLOGICAL: He has tingling and numbness in his feet. HEMATOLOGIC/LYMPHATIC: He is weak, tired, and fatigued. SKIN: The patient has some skin boils sometimes, which resolve slowly. PSYCHIATRIC: No anxiety or depression. PHYSICAL EXAMINATION GENERAL: Looks stable. Well developed, well nourished, and in no acute distress. VITAL SIGNS: Blood pressure 120/77, pulse 86 per minute, respirations 16 per minute, temperature 97.3, pulse ox 97% on room air. HEENT: Head: Atraumatic. No sinus tenderness to palpation. Eyes: No icterus or conjunctivitis. Mouth and throat: No oral thrush or mucositis. NECK: Supple. No cervical or supraclavicular lymphadenopathy. LUNGS: Clear to auscultation and percussion bilaterally. HEART: Regular rate and rhythm. No gallops, murmurs, clicks, or rubs. ABDOMEN: Soft and lax. No tenderness. No hepatosplenomegaly. No masses. EXTREMITIES: No cyanosis, clubbing, or edema. LYMPHATICS: No peripheral lymphadenopathy. NEUROLOGICAL: Conscious, alert, and oriented times three. No focal motor or sensory deficits. PSYCHIATRIC: Mood and affect appear normal. SKIN: There is an abscess lying over the left zygoma near the left eye. DIAGNOSTIC DATA CBC showed white count 2.5, hemoglobin 15.9, hematocrit 45.1, platelets 140,000. ANC is 1.5. Chem panel is totally normal. LDH is normal at 399 and uric acid is normal at 4.5. Beta 2 microglobulin is mildly elevated at 2.7. [place] free light chain is mildly elevated at 2.09 and kappa to lambda free light ratio is mildly elevated at 1.87. IgG is 1,220. IgA is 33. IgM is 16. Serum protein immunoelectrophoresis showed normal pattern. ASSESSMENT 1. Multiple myeloma diagnosed in July 2014, status post Velcade, Revlimid, and dexamethasone (Decadron) prior to bone marrow transplant. He received Velcade, Revlimid, and dexamethasone between August 05, 2014 through December 11, 2014. This was followed by two cycles of Kyprolis, Revlimid, and dexamethasone between December 15, 2014 through February 03 2015. He had autologous stem cell transplant March 12, 2015 after melphalan conditioning. After autologous stem cell transplant, the patient had residual monoclonal protein of IgG kappa of 1.45 g/dL. He received after that maintenance Revlimid therapy and Decadron started March 07, 2015. His current serum protein immunoelectrophoresis showed normal pattern. I am planning to continue followup. I will see him again in two months with CBC, chem panel, uric acid, myeloma profile and I will check his 24-hour urine at that time for immunoelectrophoresis and Bence-Ramirez protein. 2. Chemotherapy-induced neutropenia. Current white count is 2.5 and ANC is 1.5; could be due to his recent upper respiratory tract infection. We will continue to monitor. 3. Anxiety, on Xanax p.r.n. 4. Deep venous thrombosis, left lower extremity, on Xarelto 20 mg daily. 5. History of seizure, on Dilantin. PLAN 1. Continue followup. 2. Continue Revlimid 10 mg daily. 3. Continue Decadron 20 mg weekly. 4. Xarelto 20 mg daily. 5. Patient to return in two months with CBC, chem panel, LDH, uric acid, myeloma profile and 24-hour urine for immunoelectrophoresis and free light chain assay. 6. Patient to contact us for any new concerns or complaints. MTDD
[2018-07-20 08:47] VITALS: BP 128/92
[2018-07-20] MEDS: LIDOCAINE/SOD BICARB 8.4% SYR ID PRN (08:48)
[2018-07-20] MEDS: HEPARIN FLSH (PORT) 500 UN/5ML IVP PRN (08:49)
[2018-08-17 08:24] VITALS: BP 124/80
[2018-08-17 09:11] LABS: PLATELET COUNT, AUTOMATED 140 K/uL (150-450)
[2018-08-17] MEDS: LIDOCAINE/SOD BICARB 8.4% SYR ID PRN (09:13)
[2018-08-17] MEDS: HEPARIN FLSH (PORT) 500 UN/5ML IVP PRN (09:15)
[~2018-08-24 08:00] MED LIST changes: -INFLUENZA VIRUS VAC 0.5ML SYR IM ONLY ONE
[2018-08-24 08:05] VITALS: BP 117/73
--- NOTE | 2018-08-24 16:13 | [facility] ONCOLOGY NOTE ---
EVENT DATE: August 24, 2018 DIAGNOSES 1. Multiple myeloma with trisomy 9 and 15 and beginning of CCND1. 2. Hypercalcemia due to multiple myeloma. 3. Hyperuricemia due to multiple myeloma. 4. Back pain secondary to multiple myeloma. 5. Anxiety. 6. Seizure. 7. History of deep vein thrombosis in 2011. CHIEF COMPLAINT Patient is here today for followup of his multiple myeloma, on maintenance Revlimid therapy. ONCOLOGY HISTORY Mr. Calderon is a 62-year-old male who was noted to have increased low back pain for the last three months which was getting worse, increased with coughing and sneezing. The patient ended up having a lumbar spine MRI done on August 01, 2014, which revealed two bone lesions in L2 and S1 with otherwise heterogeneous marrow with differential of bone metastasis versus multiple myeloma. He has also superior endplate fracture of L4, which could be pathologic degenerative disease of L4-L5, and annular tear at L4-L5. Serum protein electrophoresis was done, which showed high M-spike of 7.0 gm/dL. His urinalysis and urine protein electrophoresis were positive for monoclonal free kappa light chain. His urine immunoelectrophoresis shows a monoclonal IgG heavy chain with associated kappa light chain and excess monoclonal 3 kappa light chains. The urinary kappa light chain was 8.54 mg/dL. His total protein in urine was 15.92 mg/dL. Skeletal bone survey done on August 05, 2014, did reveal multiple lucencies throughout the visualized bone consistent with bony metastases, especially multiple myeloma. Because of his back pain, the patient has started radiation therapy of his back and started on Lortab for pain control. Bone marrow aspiration biopsy done on August 12, 2014, showed abnormal multiple myeloma FISH panel with trisomy of chromosome 9 and 15 and again of CCND1. The patient started treatment with Velcade and Decadron on August 13, 2014. The patient received five cycles of VRd, completed on December 10, 2014. His treatment was switched to Krypolis, Revlimid, and dexamethasone on December 15, 2014, to speed the induction of remission of his myeloma prior to autologous bone marrow transplant as per Dr. James Colindres, his bone marrow crop picker. The patient had autologous stem cell transplant on March 12, 2015, after melphalan conditioning. For his residual increasing monoclonal protein of IgG kappa at 1.45 gm/dL after his bone marrow transplant, the patient started maintenance chemotherapy with Revlimid and Decadron, started on March 07, 2015. The patient developed neutropenia and thrombocytopenia from Revlimid, and the dose of Revlimid decreased from 15 mg per day to 10 mg per day on October 29, 2015. HISTORY OF PRESENT ILLNESS Patient is here today for followup of his multiple myeloma on maintenance Revlimid therapy. He is doing fine currently. He has some nasal discharge. He has some dry cough. He noticed his urine is foamy lately, but intermittently. He has some numbness at the bottom of his feet. Other than that, his general condition is really very good. PAST MEDICAL HISTORY 1. History of seizure, on medication since 1986, without any recurrence after that. 2. DVT in 2011. PAST SURGICAL HISTORY 1. He had broken left wrist with surgery x2 in 1992. 2. He had knee scope of the right knee in 2009. SOCIAL HISTORY The patient is with two children. He works as a assistant financial accountant. He has two drinks per month. He chewed tobacco, but he did not smoke before. He denies any abuse of illicit drugs. FAMILY HISTORY Father had prostate cancer at the age of 72. ALLERGIES No known drug allergies, but he has allergy to IODINE DYE. CURRENT MEDICATIONS 1. Xarelto 20 mg daily. 2. Bupropion XL 150 mg daily. 3. Bactrim DS one tablet twice daily two days per week. 4. Dilantin 400 mg at bedtime. 5. Decadron 20 mg weekly. 6. Valtrex 500 mg twice daily. 7. Protonix 20 mg daily. 8. Revlimid 10 mg daily. 9. Xanax 0.25 mg p.r.n. for anxiety. 10. Lortab 5/325 mg one tablet every four to six hours p.r.n. pain. 11. Compazine 10 mg q.6 hours p.r.n. for nausea and vomiting. REVIEW OF SYSTEMS CONSTITUTIONAL: No appetite or weight change. No fever, chills, or sweating. No recent infection. HEENT: Ears: No tinnitus or hearing problem. Nose: He has nasal discharge. No epistaxis. Throat: No sore throat or mouth ulcers. Eyes: No diplopia or visual changes. RESPIRATORY: No shortness of breath. He has a dry cough. No expectoration or hemoptysis. CARDIOVASCULAR: No chest pain, orthopnea, or paroxysmal nocturnal dyspnea (PND). No edema. No palpitations. GASTROINTESTINAL: No nausea or vomiting. No diarrhea or constipation. No change in bowel movements. No heartburn or swallowing difficulties. No abdominal pain. No jaundice. No hematemesis, melena or rectal bleeding. GENITOURINARY: He has foamy urine intermittently. MUSCULOSKELETAL: No pain in the muscles, joints or bones. NEUROLOGIC: He has numbness at the bottom of his feet. No headaches or convulsions. HEMATOLOGIC/LYMPHATIC: No bleeding or easy bruising. No weakness or fatigue. No enlarged lymph nodes. SKIN: No skin rash or lumps. PSYCHIATRIC: No anxiety or depression. PHYSICAL EXAMINATION GENERAL: Looks stable. Well developed, well nourished, and in no acute distress. VITAL SIGNS: Blood pressure 117/73, pulse 74 per minute, respirations 16 per minute, temperature 96.8, pulse ox 95% on room air. HEENT: Head: Atraumatic. No sinus tenderness to palpation. Eyes: No icterus or conjunctivitis. Mouth and throat: No oral thrush or mucositis. NECK: Supple. No cervical or supraclavicular lymphadenopathy. LUNGS: Clear to auscultation and percussion bilaterally. HEART: Regular rate and rhythm. No gallops, murmurs, clicks, or rubs. ABDOMEN: Soft and lax. No tenderness. No hepatosplenomegaly. No masses. EXTREMITIES: No cyanosis, clubbing, or edema. LYMPHATICS: No peripheral lymphadenopathy. NEUROLOGICAL: Conscious, alert, and oriented x3. No focal motor or sensory deficits. PSYCHIATRIC: Mood and affect appear normal. SKIN: No skin rash, bruise, or purpuric eruption. DIAGNOSTIC DATA CBC showed white count 1.7 with ANC of 1, hemoglobin 15.7, hematocrit 45.4, platelets 140,000. Chem panel totally normal except chloride 113. Beta 2 microglobulin is normal at 2.1. [place] free light chain is normal at 1.6, lambda free light chain is normal. at 1.01, and the kappa to lambda free light chain ratio is normal at 1.59. IgG level is 1040. IgA level is 36. IgM is 19. Serum protein immunoelectrophoresis showed a normal pattern. His 24-hour urine showed kappa free light chain at 8.33, which is slightly above normal, and the kappa to lambda free light chain ratio in the urine was 25.24, which is also high. ASSESSMENT 1. Multiple myeloma diagnosed July 2014, status post Velcade, Revlimid, and dexamethasone prior to bone marrow transplant. He received Velcade, Revlimid, and dexamethasone between August 05, 2014, through December 11, 2014. This was followed by two cycles of Kyprolis, Revlimid, and dexamethasone between December 15, 2014, through February 03 2015. He had autologous stem cell transplant March 12, 2015, after melphalan conditioning. After autologous stem cell transplant, the patient had residual monoclonal protein of IgG kappa of 1.45 g/dL. He received after that maintenance Revlimid therapy and Decadron, started March 07, 2015. His current serum protein immunoelectrophoresis showed normal pattern. [place] free light chain was normal in the serum, but slightly elevated in the urine specimen. I am planning to continue followup. I will see him again in two months with CBC, chem panel, LDH, uric acid, and myeloma profile. I will continue Revlimid at the same dose, 10 mg daily. 2. Chemotherapy-induced neutropenia. Current white count is 2.7. ANC is 1. Patient was advised about neutropenia precautions. 3. Anxiety, on Xanax p.r.n. 4. Deep venous thrombosis, left lower extremity, on Xarelto 20 mg daily. 5. History of seizure, on Dilantin. PLAN 1. Continue followup. 2. Continue Revlimid 10 mg daily. 3. Continue Decadron 20 mg weekly. 4. Xarelto 20 mg daily. 5. Patient to return in two months with CBC, chem panel, LDH, uric acid, myeloma profile. 6. Patient to contact us for any new concern or complaints. MTDD
== END 2018-09-12 ==
LOC: ONC 08:00
PROVIDERS: ATTEND Internal Medicine Hematology
DX: C90.00 Multiple myeloma not having achieved remission (principal); D70.1 Agranulocytosis secondary to cancer chemotherapy; D69.6 Thrombocytopenia, unspecified; F41.9 Anxiety disorder, unspecified; I82.402 Acute embolism and thrombosis of unspecified deep veins of left lower extremity; Z79.01 Long term (current) use of anticoagulants; Z87.891 Personal history of nicotine dependence; Z79.899 Other long term (current) drug therapy; R53.1 Weakness; R53.83 Other fatigue; E83.52 Hypercalcemia; E79.0 Hyperuricemia without signs of inflammatory arthritis and tophaceous disease; M54.9 Dorsalgia, unspecified; Z23 Encounter for immunization; R56.9 Unspecified convulsions; R20.2 Paresthesia of skin; Z92.21 Personal history of antineoplastic chemotherapy; Z92.3 Personal history of irradiation; Z94.81 Bone marrow transplant status
CPT/HCPCS: 36591; 82232; 83615; 83883; 84156; 84550; 85025; 86334; 86335; 96523; 99212; J1642; 82040; 82247; 82310; 82374; 82435; 82565; 82947; 84075; 84132; 84155; 84295; 84450; 84460; 84520

== ENCOUNTER 2018-11-16 08:00 | Outpatient (RCR) | payer OTHER ==
[2017-12-14 10:33] VITALS: Wt 82.0 kg
[2018-09-17 11:25] VITALS: BP 125/88
[2018-10-09 14:04] VITALS: BP 114/88
--- NOTE | 2018-10-09 20:16 | ONCOLOGY FOLLOW UP NOTE ---
EVENT DATE: October 09, 2018 DIAGNOSES 1. Multiple myeloma with trisomy 9 and 15 and beginning of CCND1. 2. Hypercalcemia due to multiple myeloma. 3. Hyperuricemia due to multiple myeloma. 4. Back pain secondary to multiple myeloma. 5. Anxiety. 6. Seizure. 7. History of deep vein thrombosis in 2011. CHIEF COMPLAINT Patient is here today for an add-on visit as he is requesting evaluation of a left upper extremity ulceration. He continues on maintenance Revlimid therapy. He just recently returned from a cruise to [facility]. ONCOLOGY HISTORY Mr. Calderon is a 62-year-old male who was noted to have increased low back pain for the last three months which was getting worse, increased with coughing and sneezing. The patient ended up having a lumbar spine MRI done on August 01, 2014, which revealed two bone lesions in L2 and S1 with otherwise heterogeneous marrow with differential of bone metastasis versus multiple myeloma. He has also superior endplate fracture of L4, which could be pathologic degenerative disease of L4-L5, and annular tear at L4-L5. Serum protein electrophoresis was done, which showed high M-spike of 7.0 gm/dL. His urinalysis and urine protein electrophoresis were positive for monoclonal free kappa light chain. His urine immunoelectrophoresis shows a monoclonal IgG heavy chain with associated kappa light chain and excess monoclonal 3 kappa light chains. The urinary kappa light chain was 8.54 mg/dL. His total protein in urine was 15.92 mg/dL. Skeletal bone survey done on August 05, 2014, did reveal multiple lucencies throughout the visualized bone consistent with bony metastases, especially multiple myeloma. Because of his back pain, the patient has started radiation therapy of his back and started on Lortab for pain control. Bone marrow aspiration biopsy done on August 12, 2014, showed abnormal multiple myeloma FISH panel with trisomy of chromosome 9 and 15 and again of CCND1. The patient started treatment with Velcade and Decadron on August 13, 2014. The patient received five cycles of VRd, completed on December 10, 2014. His treatment was switched to Krypolis, Revlimid, and dexamethasone on December 15, 2014, to speed the induction of remission of his myeloma prior to autologous bone marrow transplant as per Dr. James Colindres, his bone marrow ribbon winder. The patient had autologous stem cell transplant on March 12, 2015, after melphalan conditioning. For his residual increasing monoclonal protein of IgG kappa at 1.45 gm/dL after his bone marrow transplant, the patient started maintenance chemotherapy with Revlimid and Decadron, started on March 07, 2015. The patient developed neutropenia and thrombocytopenia from Revlimid, and the dose of Revlimid decreased from 15 mg per day to 10 mg per day on October 29, 2015. HISTORY OF PRESENT ILLNESS Patient is here today for evaluation of a left forearm ulceration which he noted a few days ago. He recently returned from a cruise to [facility]. He tells me that initially this bump on his left arm began as a large pimple-like area, but this morning, he awoke to find this was fluid filled. It seemed to have burst and is now mostly dry and flat; however, he has noted an area of surrounding redness which he believes has gotten larger throughout the day. He denies any pains in the left upper extremity. He denies any fevers. He has full range of motion. Of note, he tells me that while on his vacation, he did have to see the ship doctor. He tells me he felt like he already had a URI prior to beginning his trip, but 24 hours into his trip, he did see the physician. They recommended a course of Levaquin. He tells me that he has a standing order for Levaquin, and he simply started this. He took a 10-day course of Levaquin. He took his last dose on 09/29/18. Otherwise, he feels well. He continues to have some nasal drainage and discharge as well as a dry cough, but tells me that this is at baseline. He feels as though he is reacclimating to the pulp drier firer weather. His cough is mostly dry and is much improved since his vacation. No urinary issues. No new focal areas of pain. He does still have some numbness at the bottom of his feet. He remains on his Revlimid. PAST MEDICAL HISTORY 1. History of seizure, on medication since 1986, without any recurrence after that. 2. DVT in 2011. PAST SURGICAL HISTORY 1. He had broken left wrist with surgery x2 in 1992. 2. He had knee scope of the right knee in 2009. SOCIAL HISTORY The patient is with two children. He works as a chartered financial analyst. He has two drinks per month. He chewed tobacco, but he did not smoke before. He denies any abuse of illicit drugs. FAMILY HISTORY Father had prostate cancer at the age of 72. ALLERGIES No known drug allergies, but he has allergy to IODINE DYE. MEDICATIONS 1. Xarelto 20 mg daily. 2. Bupropion XL 150 mg daily. 3. Bactrim DS one tablet twice daily two days per week. 4. Dilantin 400 mg at bedtime. 5. Decadron 20 mg weekly. 6. Valtrex 500 mg twice daily. 7. Protonix 20 mg daily. 8. Revlimid 10 mg daily. 9. Xanax 0.25 mg p.r.n. for anxiety. 10. Lortab 5/325 mg one tablet every four to six hours p.r.n. pain. 11. Compazine 10 mg q.6 hours p.r.n. for nausea and vomiting. REVIEW OF SYSTEMS CONSTITUTIONAL: Patient denies any recent fevers or chills. He does believe that he had the beginnings of an upper respiratory infection a couple of weeks ago, for which he took Levaquin. He never had any noticeable fever, however. HEENT: No diplopia or visual changes. No tinnitus or hearing problem. He continues to have the nasal drainage and discharge. No epistaxis. No sinus tenderness. No tinnitus or hearing problems. No sore throat. He denies any dysphagia or odynophagia. No sore throat or mouth ulcers. RESPIRATORY: No shortness of breath. He does have a dry cough, though this was much more productive and worse while on his vacation. It is overall improved. He denies any hemoptysis or pleuritic chest pain. CARDIOVASCULAR: No chest pain. He denies any syncope or presyncope. GASTROINTESTINAL: No abdominal pain, nausea, vomiting, diarrhea, constipation, bright red blood per rectum, or melena. Appetite is normal. GENITOURINARY: No dysuria, hematuria, or genitourinary discharge. MUSCULOSKELETAL: He denies any focal areas of pain. NEUROLOGIC: He continues to experience numbness at the bottom of his feet, which is largely unchanged. He does have a mild headache today, but tells me that this is minimal. He denies any seizure-like activity. HEMATOLOGIC/LYMPHATIC: He denies any free bleeding or easy bruising. No recent palpable lymphadenopathy. DERM: He has a new left arm ulceration which he is quite concerned about. There is no pain, but there is an area of redness around the central ulceratoin, which has worsened today. He is quite concerned about MRSA infection. He does report a history of boils on his skin, but denies any recent spreading. He reports that he did have to see Infectious Disease approximately one year ago for this. PSYCHIATRIC: He does report some anxiety in general and some anxiety related to this ulceration. He denies any severe anxiety, severe depression, suicidal or homicidal ideation. The remainder of a 12-point review of systems is performed today and is otherwise negative. PHYSICAL EXAMINATION VITAL SIGNS: T 96.9, P 77, R 16, BP 114/88, oxygen saturation 98% room air. GENERAL: In general, this is a pleasant 62-year-old gentleman who appears well hydrated, well nourished, and is in no acute distress. HEAD: Atraumatic, normocephalic. EYES: Sclerae anicteric. ENT, MOUTH: No mucositis. No suspicious ulcerations. There is mild clear rhinorrhea noted to bilateral turbinates. Moist mucous membranes. NECK: Supple. No lymphadenopathy. No JVD. LUNGS: Clear breath sounds to auscultation bilaterally. No wheezes, rales, or rhonchi. Respiratory effort is normal. CARDIOVASCULAR: Regular rate and rhythm. No ectopy. ABDOMEN: Soft, nontender, nondistended. No organomegaly. Exam is limited as patient was in a seated position today. EXTREMITIES: No edema. No clubbing or cyanosis. NEUROLOGIC: Patient is awake, alert, oriented x3. No gross focal motor or sensory deficits. PSYCHIATRIC: Mood and affect are appropriate and within normal limits today. DERM: Patient has an ulceration noted to the inner anterior left forearm, approximately 2 mm. Area does appear blistered over and is mostly dry. Around the central lesion, there is an area approximately 1 inch in circumference which is erythematous. This could be the beginning of a soft tissue infection/cellulitis. There is no swelling. No significant warmth. There are no other similar lesions or suspicious lesions on cursory examination today. LABORATORY CBC on 08/17/2018: WBC 1.7, ANC 1.0, hemoglobin 15.7, hematocrit 45.4%, platelets 140,000. CMP on same day: Sodium normal at 140, potassium normal, 4.1, serum creatinine normal, 0.90, uric acid normal, 4.7, calcium normal, 8.9, total bilirubin normal, 0.4, AST normal, 29, ALT normal, 36, alkaline phosphatase normal, 96, LDH normal at 386. IMPRESSION AND PLAN This is a pleasant 62-year-old male with multiple myeloma diagnosed July 2014, status post Velcade, Revlimid, and dexamethasone prior to bone marrow transplant. He received Velcade, Revlimid, and dexamethasone between August 05, 2014, through December 11, 2014. This was followed by two cycles of Kyprolis, Revlimid, and dexamethasone between December 15, 2014, through February 03 2015. He had autologous stem cell transplant March 12, 2015, after melphalan conditioning. After autologous stem cell transplant, the patient had residual monoclonal protein of IgG kappa of 1.45 g/dL. He received after that maintenance Revlimid therapy and Decadron, started March 07, 2015. His current serum protein immunoelectrophoresis showed normal pattern. [place] free light chain was normal in the serum, but slightly elevated in the urine specimen. Our plan has been to continue with followup. He remains on Revlimid, dose reduced to 10 mg daily. He reports tolerating this well. He is being seen today for add-on visit with reports of a new suspicious possible infection/blister to the left anterior forearm. He is quite concerned as he was just recently on a cruise and recently returned from [facility]. He also had an upper respiratory infection while he was on his vacation and did complete a course of Levaquin, with last dose given on 09/29/18. He has been afebrile. He has no pain or difficulty with range of motion to his left upper extremity. 1. Multiple myeloma, status post VRd prior to bone marrow transplant. He remains on decreased-dose Revlimid 10 mg daily, and he will continue treatment. 2. Recommended labs today, at least a CBC, though patient refused as he tells me that he would like to wait until next week when he is in clinic as scheduled. He is afebrile at this time, so I will hold off; however, he was given strict instructions as far as when to call our office. If he were to have any fever or worsening, I do recommend that he call our office, and at this point, we will certainly need to check a CBC. 3. Left forearm skin infection: Patient does have an ulceration with an area of erythema noted around it, possibly an early skin infection. He does have a history of developing boils and tells me that at one point he did have to have some surgically removed and did see an infectious disease specialist in [place]. At this time, he is nontoxic-appearing and is afebrile. I have ordered a swab culture for bacterial culture of the area. We will notify him if results return positive. 4. For prophylaxis of his possible cellulitis, I have given him a handwritten prescription to begin Keflex 500 mg 1 p.o. q.6 hours x10 days, #40, no refills. Discussed how to take this. He will start this today. He is to continue this until completion or unless we advise him otherwise. 5. Patient was given ER precautions and signs and symptoms of when to call our office. The area noted on the skin to the left forearm was marked today for reference. 6. Patient will return to clinic as scheduled next Monday. RANJAN
[2018-10-18 08:37] LABS: PLATELET COUNT, AUTOMATED 136 K/uL (150-450)
[2018-10-18 08:39] VITALS: BP 114/85
[2018-10-18] MEDS: LIDOCAINE/SOD BICARB 8.4% SYR ID PRN (08:47)
[2018-10-18] MEDS: HEPARIN FLSH (PORT) 500 UN/5ML IVP PRN (08:48)
[2018-10-26 08:14] VITALS: BP 111/68
--- NOTE | 2018-10-26 21:11 | [facility] ONCOLOGY NOTE ---
EVENT DATE: October 26, 2018 DIAGNOSES 1. Multiple myeloma with trisomy 9 and 15 and beginning of CCND1. 2. Hypercalcemia due to multiple myeloma. 3. Hyperuricemia due to multiple myeloma. 4. Back pain secondary to multiple myeloma. 5. Anxiety. 6. Seizure. 7. History of deep vein thrombosis in 2011. CHIEF COMPLAINT Patient is here today for followup of his multiple myeloma, on maintenance Revlimid therapy. ONCOLOGY HISTORY Mr. Calderon is a 62-year-old male who was noted to have increased low back pain for the last three months which was getting worse, increased with coughing and sneezing. The patient ended up having a lumbar spine MRI done on August 01, 2014, which revealed two bone lesions in L2 and S1 with otherwise heterogeneous marrow with differential of bone metastasis versus multiple myeloma. He has also superior endplate fracture of L4, which could be pathologic degenerative disease of L4-L5, and annular tear at L4-L5. Serum protein electrophoresis was done, which showed high M-spike of 7.0 gm/dL. His urinalysis and urine protein electrophoresis were positive for monoclonal free kappa light chain. His urine immunoelectrophoresis shows a monoclonal IgG heavy chain with associated kappa light chain and excess monoclonal 3 kappa light chains. The urinary kappa light chain was 8.54 mg/dL. His total protein in urine was 15.92 mg/dL. Skeletal bone survey done on August 05, 2014, did reveal multiple lucencies throughout the visualized bone consistent with bony metastases, especially multiple myeloma. Because of his back pain, the patient has started radiation therapy of his back and started on Lortab for pain control. Bone marrow aspiration biopsy done on August 12, 2014, showed abnormal multiple myeloma FISH panel with trisomy of chromosome 9 and 15 and again of CCND1. The patient started treatment with Velcade and Decadron on August 13, 2014. The patient received five cycles of VRd, completed on December 10, 2014. His treatment was switched to Krypolis, Revlimid, and dexamethasone on December 15, 2014, to speed the induction of remission of his myeloma prior to autologous bone marrow transplant as per Dr. James Colindres, his bone marrow functional tester. The patient had autologous stem cell transplant on March 12, 2015, after melphalan conditioning. For his residual increasing monoclonal protein of IgG kappa at 1.45 gm/dL after his bone marrow transplant, the patient started maintenance chemotherapy with Revlimid and Decadron, started on March 07, 2015. The patient developed neutropenia and thrombocytopenia from Revlimid, and the dose of Revlimid decreased from 15 mg per day to 10 mg per day on October 29, 2015. HISTORY OF PRESENT ILLNESS Patient is here today for followup of his multiple myeloma, on maintenance Revlimid therapy. Patient currently in complete remission with no monoclonal protein in his serum protein electrophoresis. He is doing fine currently. He denies any constitutional symptoms. Apart from having right shoulder pain recently, patient does not have any other complaints. PAST MEDICAL HISTORY 1. History of seizure, on medication since 1986, without any recurrence after that. 2. DVT in 2011. PAST SURGICAL HISTORY 1. He had broken left wrist with surgery x2 in 1992. 2. He had knee scope of the right knee in 2009. SOCIAL HISTORY The patient is with two children. He works as a financial reporting director. He has two drinks per month. He chewed tobacco, but he did not smoke before. He denies any abuse of illicit drugs. FAMILY HISTORY Father had prostate cancer at the age of 72. ALLERGIES No known drug allergies, but he has allergy to IODINE DYE. CURRENT MEDICATIONS 1. Xarelto 20 mg daily. 2. Bupropion XL 150 mg daily. 3. Bactrim DS one tablet twice daily two days per week. 4. Dilantin 400 mg at bedtime. 5. Decadron 20 mg weekly. 6. Valtrex 500 mg twice daily. 7. Protonix 20 mg daily. 8. Revlimid 10 mg daily. 9. Xanax 0.25 mg p.r.n. for anxiety. 10. Lortab 5/325 mg one tablet every four to six hours p.r.n. pain. 11. Compazine 10 mg q.6 hours p.r.n. for nausea and vomiting. REVIEW OF SYSTEMS CONSTITUTIONAL: No appetite or weight change. No fever, chills, or sweating. No recent infection. HEENT: Ears: No tinnitus or hearing problem. Nose: No nasal discharge or epistaxis. Throat: No sore throat or mouth ulcers. Eyes: No diplopia or visual changes. RESPIRATORY: No shortness of breath. No cough, expectoration, or hemoptysis. CARDIOVASCULAR: No chest pain, orthopnea, or paroxysmal nocturnal dyspnea (PND). No edema. No palpitations. GASTROINTESTINAL: No nausea or vomiting. No diarrhea or constipation. No change in bowel movements. No heartburn or swallowing difficulties. No abdominal pain. No jaundice. No hematemesis, melena, or rectal bleeding. GENITOURINARY: No hematuria or dysuria. MUSCULOSKELETAL: He has right shoulder pain sometimes due to arthritis. NEUROLOGIC: No tingling or numbness in the hands or feet. No headaches or convulsions. HEMATOLOGIC/LYMPHATIC: No bleeding or easy bruising. No weakness or fatigue. No enlarged lymph nodes. SKIN: No skin rash or lumps. PSYCHIATRIC: No anxiety or depression. PHYSICAL EXAMINATION GENERAL: Looks stable. Well developed, well nourished, and in no acute distress. VITAL SIGNS: Blood pressure 111/68, pulse 65 per minute, respirations 16 per minute, temperature 97.3, pulse ox 98% on room air. HEENT: Head: Atraumatic. No sinus tenderness to palpation. Eyes: No icterus or conjunctivitis. Mouth and throat: No oral thrush or mucositis. NECK: Supple. No cervical or supraclavicular lymphadenopathy. LUNGS: Clear to auscultation and percussion bilaterally. HEART: Regular rate and rhythm. No gallops, murmurs, clicks, or rubs. ABDOMEN: Soft and lax. No tenderness. No hepatosplenomegaly. No masses. EXTREMITIES: No cyanosis, clubbing, or edema. LYMPHATICS: No peripheral lymphadenopathy. NEUROLOGICAL: Conscious, alert, and oriented times three. No focal motor or sensory deficits. PSYCHIATRIC: Mood and affect appear normal. SKIN: No skin rash, bruise, or purpuric eruption. DIAGNOSTIC DATA CBC showed white count 2.4, hemoglobin 15.6, hematocrit 45.5, platelets 136,000. Chem panel totally normal except AST 36. His ANC currently is 900. Beta 2 microglobulin is normal at 2. [place] free light chain is 1.6, lambda free light chain is normal 0.94, both within the normal range. IgG is 1100 which is normal. IgA level is 31 which is a little bit low. IgM is 18 which is also low. Serum protein immunoelectrophoresis is normal without any monoclonal protein. ASSESSMENT 1. Multiple myeloma diagnosed July 2014, status post Velcade, Revlimid, and dexamethasone prior to bone marrow transplant. He received Velcade, Revlimid, and dexamethasone between August 05, 2014, through December 11, 2014. This was followed by two cycles of Kyprolis, Revlimid, and dexamethasone between December 15, 2014, through February 03, 2015. He had autologous stem cell transplant March 12, 2015, after melphalan conditioning. After autologous stem cell transplant, the patient had residual monoclonal protein of IgG kappa of 1.45 g/dL. He received after that maintenance Revlimid therapy and Decadron, started March 07, 2015. His current serum protein immunoelectrophoresis currently is normal without any monoclonal protein. [place] free light chain and lambda free light chain are normal currently. I am planning to continue followup. I will see him again in two months with CBC, CMP, LDH, uric acid, and myeloma profile. Will continue portal flush every month. Will continue also Revlimid at 10 mg daily. 2. Chemotherapy-induced neutropenia. Current white count is 2.4 and the ANC 900, nearly stable. Will continue to monitor. 3. Anxiety, on Xanax p.r.n. 4. Deep venous thrombosis, left lower extremity, on Xarelto 20 mg daily. 5. History of seizure, on Dilantin. PLAN 1. Continue followup. 2. Continue Revlimid 10 mg daily. 3. Continue Decadron 20 mg weekly. 4. Xarelto 20 mg daily. 5. Patient to return in two months with CBC, chem panel, LDH, uric acid, myeloma profile. 6. Patient to contact us for any new concern or complaints. MTDD
[2018-11-16 08:07] VITALS: BP 114/84
[2018-11-16] MEDS: LIDOCAINE/SOD BICARB 8.4% SYR ID PRN (08:21)
[2018-11-16] MEDS: HEPARIN FLSH (PORT) 500 UN/5ML IVP PRN (08:21)
== END 2018-12-13 ==
LOC: SPU 08:00
PROVIDERS: ATTEND Internal Medicine Hematology
DX: C90.00 Multiple myeloma not having achieved remission (principal); L53.9 Erythematous condition, unspecified; E83.52 Hypercalcemia; E79.0 Hyperuricemia without signs of inflammatory arthritis and tophaceous disease; M54.9 Dorsalgia, unspecified; F41.9 Anxiety disorder, unspecified; Z86.718 Personal history of other venous thrombosis and embolism; Z79.01 Long term (current) use of anticoagulants
CPT/HCPCS: 36591; 82232; 83615; 83883; 84550; 85025; 86334; 87070; 87077; 87186; 96523; 99212; J1642; 82040; 82247; 82310; 82374; 82435; 82565; 82947; 84075; 84132; 84155; 84295; 84450; 84460; 84520